=== PATIENT | female | born 1940 | race Caucasian/White ===

== ENCOUNTER → 2024-09-18 | Outpatient (CLI) | payer MEDICARE, SELFPAY ==
--- NOTE | 2024-09-18 10:30 | XR_ITS ---
Examination: Screening digital mammography, bilateral Computer aided detection 3-D breast Tomosynthesis, bilateral Date and time of exam: September 18, 2024 at 10:31 AM Compared to mammograms dating to June 21, 2020 Indication: Screening Technique: Nonmagnified MLO, CC views of the breasts to been obtained, reconstructed from 3-D Tomosynthesis images. R2 computer aided detection program utilized for evaluation of suspicious masses and/or abnormal calcifications. 3-D Tomosynthesis images obtained. Findings: The breasts are heterogeneously dense, which may obscure small masses Scar formation surgical clips upper outer left breast again noted 14 mm focal asymmetry upper outer right breast posterior depth Impression: BI-RADS Category 0: Incomplete: Need additional imaging evaluation 10 mm focal asymmetry upper outer right breast posterior depth, recommend follow-up spot tomographic views of this asymmetry as well as bilateral breast sonography to complete the workup
== END | disposition home or self-care (01) ==
PROVIDERS: Referring Provider Nurse Practitioner Family; Visit Provider Nurse Practitioner Family
DX: Z12.31 Encounter for screening mammogram for malignant neoplasm of breast (principal); R92.8 Other abnormal and inconclusive findings on diagnostic imaging of breast; N64.89 Other specified disorders of breast
CPT/HCPCS: 77063; 77067

== ENCOUNTER → 2024-11-15 | Outpatient (CLI) | payer MEDICARE, SELFPAY ==
--- NOTE | 2024-11-15 11:41 | XR_ITS ---
Examination: Diagnostic digital mammography, unilateral, right Computer aided detection 3-D breast Tomosynthesis, unilateral Date and time of exam: November 15, 2024 1147 hours INDICATIONS: Mammogram September 18, 2024 10 mm focal asymmetry upper outer right breast posterior depth Technique: Nonmagnified MLO, CC views of the right breast have been obtained, reconstructed from 3-D Tomosynthesis images. R2 computer aided detection program utilized for evaluation of suspicious masses and/or abnormal calcifications. 3-D Tomosynthesis images obtained. Findings: The breast is heterogeneously dense, which may obscure small masses No suspicious masses Benign calcifications Breast biopsy marker upper right breast Impression: BI-RADS category : Benign findings Recommend yearly right mammogram follow-up Please see the left breast sonogram report today indicating BI-RADS 4 suspicious nodule 1:00 position left breast requiring ultrasound biopsy
--- NOTE | 2024-11-15 12:30 | XR_ITS ---
Examination: Breast ultrasound complete, bilateral Date and time of exam: November 15, 2024 1220 hours INDICATIONS: Mammogram September 18, 2024 14 mm focal asymmetry upper outer right breast anterior depth Technique: Real-time grayscale ultrasonographic imaging bilateral breasts, including all 4 quadrants as well as nipple retroareolar and axillary regions. Findings: Sonographic images right breast 9:00 cyst 3 x 4 mm Retroareolar calcification 4 x 5 mm Sonographic images left breast 1:00 nodule with shadowing 13 x 10 x 13 mm indistinct margins IMPRESSION: BI-RADS Category 4: Suspicious for malignancy Suspicious nodule 1:00 position left breast, biopsy is needed to exclude breast carcinoma, this mass is amenable to ultrasound-guided breast biopsy for diagnosis
== END | disposition home or self-care (01) ==
LOC: CDIM 11:39
PROVIDERS: Referring Provider Nurse Practitioner Family; Visit Provider Nurse Practitioner Family
DX: R92.321 Mammographic fibroglandular density, right breast (principal); N63.21 Unspecified lump in the left breast, upper outer quadrant
CPT/HCPCS: 76641; 77061; 77065; G0279

== ENCOUNTER → 2025-01-29 | Outpatient (CLI) | payer MEDICARE, SELFPAY | END | disposition home or self-care (01) | PROVIDERS: PCP Nurse Practitioner Family; Referring Provider Nurse Practitioner Family; Visit Provider Nurse Practitioner Family | DX: E11.65 Type 2 diabetes mellitus with hyperglycemia (principal); E78.5 Hyperlipidemia, unspecified; R53.81 Other malaise; R53.83 Other fatigue; Z11.59 Encounter for screening for other viral diseases | CPT/HCPCS: 80053; 80061; 82043; 82306; 82570; 82607; 82746; 83036; 84439; 84443; 85025; 86803 ==

== ENCOUNTER → 2025-01-30 | Outpatient (CLI) | payer MEDICARE, SELFPAY ==
[2025-01-30 10:43] LABS: Basophils # (Auto) 0.1 Thou/mm3 (0.0-0.2); Basophils % (Auto) 1 % (0-2.5); Eosinophils # (Auto) 0.1 Thou/mm3 (0.0-0.5); Eosinophils % (Auto) 2 % (0-10); Hematocrit 39.3 % (36.0-46.0); Hemoglobin 13.5 g/dL (12.0-16.0); Immature Granulocytes % (Auto) 0 % (0-0); Immature Granulocytes Auto 0.02 Thou/mm3 (0.00-0.00); Lymphocytes # (Auto) 1.3 Thou/mm3 (1.0-4.8); Lymphocytes % (Auto) 18 % (10-50); Mean Corpuscular HGB Conc 34.4 g/dl (31.0-37.0); Mean Corpuscular Hemoglobin 29.9 pg (25.0-35.0); Mean Corpuscular Volume 87 fL (80-100); Monocytes # (Auto) 0.4 Thou/mm3 (0.0-0.8); Monocytes % (Auto) 6 % (0-12); Neutrophils # (Auto) 5.2 Thou/mm3 (1.8-7.7); Neutrophils % (Auto) 73 % (37-80); Nucleated Red Blood Cell % 0 /100 WBC (0); Platelet Count 193 Thou/mm3 (140-440); RDW Standard Deviation 44.2 fL (36.4-46.3); Red Blood Count 4.52 Miln/mm3 (4.00-5.20); White Blood Count 7.1 Thou/mm3 (3.6-11.0)
[2025-01-30 11:19] LABS: Glucose Estimated Average 151 mg/dL (80-131); Hemoglobin A1C 6.9 % Hgb (4.8-6.0)
[2025-01-30 11:23] LABS: Alanine Aminotransferase 11 U/L (10-49); Albumin, Serum 4.5 gm/dL (3.4-4.8); Alkaline Phosphatase 73 U/L (46-116); Anion Gap 14 (7-16); BUN/Creatinine Ratio 14 Ratio (12-20); Bilirubin,Total 2.2 mg/dL (0.3-1.2); Blood Urea Nitrogen 14 mg/dL (9-23); Calcium 9.7 mg/dL (8.3-10.6); Calcium (Corrected) 9.7 mg/dL (8.5-10.1); Carbon Dioxide 26.7 mMol/L (20.0-31.0); Chloride 104 mMol/L (98-107); Cholesterol 124 mg/dL (132-200); Free T4 (Free Thyroxine) 1.31 ng/dL (0.89-1.76); Globulin 2.2 gm/dL (2.3-3.5); Glucose 164 mg/dL (74-106); HDL Cholesterol 62 mg/dL (40-60); LDL Cholesterol,Calculated 36 mg/dL (0-130); Osmolality,Calculated 293 (275-295); Potassium 3.8 mMol/L (3.4-5.1); Sodium 145 mMol/L (136-145); Thyroid Stimulating Hormone 1.63 uIU/mL (0.55-4.78); Total Protein 6.7 gm/dL (5.7-8.2); Triglycerides 130 mg/dL (30-150); eGFR 55 See Note
[2025-01-30 11:43] LABS: Folate 12.86 ng/mL (>5.38); Hepatitis C Antibody Non Reactive (Non React); Vitamin B12 956 pg/mL (211-911)
[2025-01-30 11:45] LABS: Creatinine MALB Rnd Ur 166 mg/dL (30-125); Microalbumin Creat Ratio 4 mg/gCrea (<30); Microalbumin, Random Urine 6 mg/L (0-300)
== END | disposition home or self-care (01) ==
LOC: COPL 10:12
PROVIDERS: PCP Nurse Practitioner Family; Referring Provider Nurse Practitioner Family; Visit Provider Nurse Practitioner Family
DX: E11.65 Type 2 diabetes mellitus with hyperglycemia (principal); E78.5 Hyperlipidemia, unspecified; R53.81 Other malaise; R53.83 Other fatigue; Z11.59 Encounter for screening for other viral diseases
CPT/HCPCS: 36415; 80053; 80061; 82043; 82306; 82570; 82607; 82746; 83036; 84439; 84443; 85025; 86803

== ENCOUNTER → 2025-02-14 | Outpatient (CLI) | payer MEDICARE, SELFPAY ==
--- NOTE | 2025-02-14 09:30 | XR_ITS ---
Examinations: Ultrasound-guided percutaneous breast biopsy, left breast 1:00 nodule left Left breast sonography limited Left breast sonogram November 15, 2024 BI-RADS 4 suspicious nodule 1:00 position left breast. Exam date and time: February 14, 2025 1123 hours. Informed consent provided. Technique: A timeout was completed verifying correct patient, procedure, site, positioning, and special equipment if applicable Informed consent provided. The patient was placed in a supine position for the breast biopsy. Sonographic images of the breast were performed for localization of the suspicious nodule The patient's breast was prepped and draped in sterile fashion. Maximum sterile barrier technique, hand hygiene, ultrasound sterile technique 1% lidocaine was used to anesthetize the skin and breast adjacent to the suspicious nodule. Utilizing ultrasonographic guidance, 8 core biopsies were obtained of the suspicious nodule utilizing an 18-gauge BioPince needle. The specimens appears satisfactory. US guided breast biopsy marker placement. Estimated blood loss 3 cc. The patient tolerated the procedure well and there were no complications. Impression: Successful ultrasound-guided percutaneous breast biopsy, left breast 1:00 nodule. Ultrasound guided breast biopsy marker placement.
[2025-02-14 10:54] LABS: Basophils # (Auto) 0.1 Thou/mm3 (0.0-0.2); Basophils % (Auto) 1 % (0-2.5); Eosinophils # (Auto) 0.1 Thou/mm3 (0.0-0.5); Eosinophils % (Auto) 1 % (0-10); Hematocrit 41.4 % (36.0-46.0); Hemoglobin 13.6 g/dL (12.0-16.0); Immature Granulocytes % (Auto) 1 % (0-0); Immature Granulocytes Auto 0.06 Thou/mm3 (0.00-0.00); Lymphocytes # (Auto) 1.7 Thou/mm3 (1.0-4.8); Lymphocytes % (Auto) 22 % (10-50); Mean Corpuscular HGB Conc 32.9 g/dl (31.0-37.0); Mean Corpuscular Hemoglobin 29.6 pg (25.0-35.0); Mean Corpuscular Volume 90 fL (80-100); Monocytes # (Auto) 0.7 Thou/mm3 (0.0-0.8); Monocytes % (Auto) 9 % (0-12); Neutrophils # (Auto) 5.1 Thou/mm3 (1.8-7.7); Neutrophils % (Auto) 67 % (37-80); Nucleated Red Blood Cell % 0 /100 WBC (0); Platelet Count 229 Thou/mm3 (140-440); RDW Standard Deviation 43.9 fL (36.4-46.3); White Blood Count 7.6 Thou/mm3 (3.6-11.0)
[2025-02-14 11:06] LABS: INR 1.2 (0.9-1.3); Partial Thromboplastin Time 27.5 Seconds (22.0-36.0); Prothrombin Time 12.7 Seconds (9.0-12.2)
== END | disposition home or self-care (01) ==
PROVIDERS: Radiology Diagnostic Radiology; PCP Nurse Practitioner Family; Referring Provider Nurse Practitioner Family; Visit Provider Nurse Practitioner Family
DX: N60.32 Fibrosclerosis of left breast (principal); R92.1 Mammographic calcification found on diagnostic imaging of breast
CPT/HCPCS: 19083; 36415; 85025; 85610; 85730; A4648

== ENCOUNTER 2025-03-14 13:33 | Inpatient (IN) | payer MEDICARE, SELFPAY ==
[2025-03-14] VITALS (7 sets, daily range): BP systolic 123–169; BP diastolic 74–92; PULSE 92–109; RESP 14–18; TEMP 36.4–36.9; O2SAT 95–99; BMI 24.7; BMI 24.0; BMI 23.7
--- NOTE | 2025-03-14 13:44 | XR_ITS ---
Examination: AP chest single view Technique one AP portable upright chest single view Date and time: March 14, 2025 1456 hours INDICATIONS: Shortness of breath today. FINDINGS: Normal heart size. Lungs are clear. The osseous structures are intact, demineralized Left breast axillary surgical clips IMPRESSION: No pneumonia or pulmonary edema
--- NOTE | 2025-03-14 13:44 | XR_ITS ---
Examination: CT brain head without contrast. 2-D sagittal coronal reconstructions Date and time of exam:March 14, 2025 1512 hours INDICATIONS: Altered mental status today COMPARISON: November 04, 2020 CTDI: vol (mGy):48 DLP: (mGycm):947 Technique: Multiple CT axial sections of the brain have been obtained, 5 mm slice thickness. Contrast has not been administered. 2-D sagittal, coronal reconstructions have been obtained Low dose protocols were performed. One or more of the following dose reduction techniques were used; automated exposure control, adjustment of the mA and/or KV according to patient size, use of iterative reconstruction technique. Findings: No significant ventricular enlargement. Intra-axial or extra-axial hemorrhage density is not seen. No mass effect or midline shift Basal cisterns are not remarkable. Fourth ventricle is midline. Cranial vault intact. Impression: Negative for acute hemorrhage, mass effect or midline shift
--- NOTE | 2025-03-14 14:27 | PD.EDFALL ---
ED Fall Injury RME/HPI General Chief Complaint: Weakness Stated Complaint: WEAKNESS Time Seen by Provider: 03/14/25 13:44 Arrival date/time: 03/14/25 13:33 Limitations: no limitations RME / HPI RME / HPI Narrative: 84 year old female with history of diabetes, gout, left breast cancer s/p left breast lumpectopmy and radiation treatment presents to the ED BIBA from home for evaluation of weakness after fall. Patient reports she was getting out of bed when she fell. Reportedly was unable to get up off the floor due to weakness. States today her brother called her and made him aware of the fall and he called 911. Per medics, on scene there was feces on the floor next to the patient. Reported she was unable to stand to use the restroom. Prehospital BS 209, blood pressure 158/68, HR 109. Patient denied head injury or LOC. Denies fevers, chills, sweats, chest pain, cough, shortness of breath, abdominal pain, nausea, vomiting, or urinary symptoms. Related Data Home Medications ?Medication ?Instructions ?Recorded ?Confirmed gabapentin 300 mg capsule 300 mg PO TID ##270 12/25/15 11/04/20 dulaglutide 0.75 mg/0.5 mL 1 units IM QWEEK ##6 04/28/16 11/04/20 subcutaneous pen injector (Trulicity) acetaminophen 650 mg 650 mg PO Q12H PRN Pain 09/26/19 11/04/20 tablet,extended release (Tylenol Arthritis Pain) allopurinol 100 mg tablet 100 mg PO QDAY 09/26/19 11/04/20 omeprazole magnesium 10 mg oral 20 mg PO QDAY 09/26/19 11/04/20 suspension,delayed release (Prilosec) simvastatin 20 mg tablet 20 mg PO QPM 09/26/19 11/04/20 Previous Rx's ?Medication ?Instructions ?Recorded tramadol 50 mg tablet 50 mg PO Q6H PRN pelvic fracture 11/05/20 #10 tabs Allergies Allergy/AdvReac Type Severity Reaction Status Date / Time codeine Allergy Mild SHAKES Verified 11/04/20 18:09 meperidine AdvReac Severe SEVERE Verified 11/04/20 18:09 VOMITING Review of Systems Review of Systems Systems Reviewed: All systems reviewed, normal except as documented Past Medical History Past Medical History CARDIAC: Positive Cardiac Disorders and Hypercholesterolemia REPRODUCTIVE: Positive Breast Cancer MUSCULOSKELETAL: Positive Musculoskeletal Disorders and Gout ENDOCRINE: Positive Endocrine Disorders and Diabetes Mellitus Type 2 OTHER HISTORY: Positive Blood Transfusions, Radiation Therapy, Cancer and Breast Cancer Social History SMOKING STATUS: Never smoker ED Exam General Limitations: Present no limitations General appearance: Present alert and in no apparent distress Head Head exam: Present atraumatic Eye Eye exam: Present normal appearance, PERRL and EOMI ENT ENT exam: Present normal exam, normal oropharynx and mucous membranes moist Neck Neck exam: Present normal inspection, full ROM and trachea midline Chest Chest inspection: Present normal inspection and symmetric chest wall rise Respiratory Respiratory exam: Present normal lung sounds bilaterally Cardiovascular Cardiovascular exam: Present regular rate, normal rhythm and normal heart sounds Abdominal Exam Abdominal exam: Present soft and normal bowel sounds Extremities Exam Extremities exam: Present normal inspection and full ROM Back Exam Back exam: Present normal inspection and full ROM Neurological Exam Neurological exam: Present alert, oriented X3 and CN II-XII intact Psychiatric Psychiatric exam: Present normal affect and normal mood Skin Skin exam: Present warm, dry, intact and normal color Course Quality Measures none Orders Category Date Time Status EKG (ED ONLY) *Do not use* NOW Care 03/14/25 17:33 Active In and Out Catheter X1 Care 03/14/25 14:[address] head/brain wo con Stat Exams 03/14/25 13:44 Completed CXR [XR chest 1V] Stat Exams 03/14/25 13:44 Completed EKG (ED Only) Stat Exams 03/14/25 17:33 Ordered US abdomen limited Stat Exams 03/14/25 17:28 Ordered Bilirubin,Direct Stat Lab 03/14/25 17:30 Ordered CBC Stat Lab 03/14/25 15:07 Completed CK [Creatine Kinase] Stat Lab 03/14/25 15:07 Completed CMP [Comprehensive Metabolic Panel] Stat Lab 03/14/25 15:07 Completed INR [Prothrombin Time with INR] Stat Lab 03/14/25 15:07 Completed Troponin I Stat Lab 03/14/25 15:07 Completed UA, C/S IF [Urinalysis, C/S if Indicated] Stat Lab 03/14/25 14:54 Completed Ringers Lactated 1000 ml [Lactated Ringers] 1,000 ml Med 03/14/25 17:26 Active IV 999 mls/hr Vital Signs Vital signs: Vital Signs Temperature 97.8 F 03/14/25 14:08 Pulse Rate 102 H 03/14/25 14:08 Respiratory Rate 16 03/14/25 14:08 Blood Pressure 123/80 03/14/25 14:08 Pulse Oximetry (%) 98 03/14/25 14:08 Oxygen Delivery Method Room Air 03/14/25 14:08 Pulse ox is 98% on room air which is adequate. Fall MDM Narrative MDM Narrative:: IYoselyn, phil scribing for and in the presence of Dr. Shell. Patient is an 84-year-old female with an emergency department with concerns for ground-level fall and difficulties getting up. Vital signs and exam as listed. Ordered labs EKG CT brain after medications for symptom relief. Labs with evidence of leukocytosis 20, with left shift. Chest x-ray unremarkable, urinalysis without evidence of infection. Patient without any abdominal pain however has a hyperbilirubinemia that is been progressively uptrending. Previously was 2 currently T. bili is 4. Ordered direct bilirubin and right upper quadrant ultrasound. Patient also with evidence of rhabdomyolysis, CK16 100, ordered fluids. CT brain and chest x-ray unremarkable. At this time my shift with no transition care over to the oncoming provider Dr. Tovar, patient is pending results of her workup and safe dispo. Patient data External records reviewed:: [facility] previous records (I reviewed ED visit on 11/05/2020 ) and EMS form Clinical information provided by:: patient and EMS Social determinants that could affect healthcare access:: none Patient has the following chronic illnesses:: diabetes, gout, left breast cancer s/p left breast lumpectopmy and radiation treatment How is presenting disease/condition affected by chronic disease/condition?: exacerbated by Evaluation data The following diagnostics were reviewed and interpreted by me:: lab results and radiology exam(s) Lab and/or radiology exams considered but not ordered:: None Interpretation Summary: Ordering Physician: Renetta Shell MD Date of Service: 03/14/25 Procedure(s): XR chest 1V Accession Number(s): [id number] cc: Hasmukh Clarke MD; NO PRIMARY/FAMILY,PHYSICIAN; Renetta Shell MD~ Examination: AP chest single view Technique one AP portable upright chest single view Date and time: March 14, 2025 1456 hours INDICATIONS: Shortness of breath today. FINDINGS: Normal heart size. Lungs are clear. The osseous structures are intact, demineralized Left breast axillary surgical clips IMPRESSION: No pneumonia or pulmonary edema Dictated By: Hasmukh Clarke MD Signed By: <Electronically signed by Hasmukh Clarke MD in OV> 03/14/25 1507 Ordering Physician: Renetta Shell MD Date of Service: 03/14/25 Procedure(s): CT head/brain wo con Accession Number(s): [id number] cc: Hasmukh Clarke MD; NO PRIMARY/FAMILY,PHYSICIAN; Renetta Shell MD~ Examination: CT brain head without contrast. 2-D sagittal coronal reconstructions Date and time of exam:March 14, 2025 1512 hours INDICATIONS: Altered mental status today COMPARISON: November 04, 2020 CTDI: vol (mGy):48 DLP: (mGycm):947 Technique: Multiple CT axial sections of the brain have been obtained, 5 mm slice thickness. Contrast has not been administered. 2-D sagittal, coronal reconstructions have been obtained Low dose protocols were performed. One or more of the following dose reduction techniques were used; automated exposure control, adjustment of the mA and/or KV according to patient size, use of iterative reconstruction technique. Findings: No significant ventricular enlargement. Intra-axial or extra-axial hemorrhage density is not seen. No mass effect or midline shift Basal cisterns are not remarkable. Fourth ventricle is midline. Cranial vault intact. Impression: Negative for acute hemorrhage, mass effect or midline shift Dictated By: Hasmukh Clarke MD Signed By: <Electronically signed by Hasmukh Clarke MD in OV> 03/14/25 1524 Medications / Prescriptions Medications or Prescriptions considered but not ordered:: None Medication administrations:: Medication Administration History Lactated Ringer's (Lactated Ringers) 1,000 mls @ 999 mls/hr IV .Q1H1M ONE Stop: 03/14/25 18:26 None Consultations Consultation(s) initiated? (list below): No Diagnosis Fall Differential Diagnosis: syncope Most likely diagnosis given after review of the tests above:: rhabdomyolysis, hyperbilirubinemia Admission Indicated Admission indicated?: not indicated Explain why admission is indicated or not indicated:: patient signed out pending final disposition Admission Request Was there a request for admission?: No Disposition Plan Disposition Plan: other (specify) (Signed out) Discharge Plan Prescriptions/Referrals Prescriptions/Med Rec: No Action gabapentin 300 MG capsule 300 mg PO TID Qty: 270 Trulicity 0.75 MG/0.5 ML pen injector 1 units IM QWEEK Qty: 6 allopurinol 100 mg Tablet 100 mg PO QDAY simvastatin 20 mg Tablet 20 mg PO QPM Rx Instructions: PT TAKES EVERY OTHER 4 DAYS Prilosec 10 mg Susp,Delayed Release For Recon 20 mg PO QDAY acetaminophen [Tylenol Arthritis Pain] 650 mg Tablet Extended Release 650 mg PO Q12H PRN (Reason: Pain) tramadol 50 mg tablet 50 mg PO Q6H PRN (Reason: pelvic fracture) Qty: 10 0RF Referrals: No Primary/Family,Physician [Primary Care Provider] - In 1 week Problem List Clinical Impression: Syncope Patient/Caregiver Discharge Instructions Print Language: Khmer
--- NOTE | 2025-03-14 14:40 | PC.NURSE ---
PT CHANGED INTO GOWN; PT HAD FECES MATERIAL ALL OVER PERINEUM AND BILATERAL THIGHS. PT GIVEN PERINEAL CARE WITH WARM BATH CLOTHS. PT PLACED IN NEW GOWN AND NEW CLEAN BRIEFS. LINEN CHANGED PERFORMED WELL. CARPET STANLEY NOTED ALL ALONG PT'S KNEES AND FEET BILATERALLY. REDNESS ALSO NOTED ALONG PT'S HIPS, ESPECIALLY ON PT'S R HIP; WHEN PT'S R HIP PALPATED, PT DENIED ANY PAIN.
[2025-03-14 15:07] LABS: Collection Type, Urine Catheter; RBC,Urine 0 /hpf (0-3); Squamous Epithelial Cell,Urine 0 /hpf (0-5); WBC,Urine 0 /hpf (0-5)
[2025-03-14 15:15] LABS: Basophils # (Auto) 0.0 Thou/mm3 (0.0-0.2); Basophils % (Auto) 0 % (0-2.5); Eosinophils # (Auto) 0.0 Thou/mm3 (0.0-0.5); Eosinophils % (Auto) 0 % (0-10); Hematocrit 42.3 % (36.0-46.0); Hemoglobin 14.8 g/dL (12.0-16.0); Immature Granulocytes Auto 0.07 Thou/mm3 (0.00-0.00); Lymphocytes # (Auto) 0.9 Thou/mm3 (1.0-4.8); Lymphocytes % (Auto) 4 % (10-50); Mean Corpuscular HGB Conc 35.0 g/dl (31.0-37.0); Mean Corpuscular Hemoglobin 30.0 pg (25.0-35.0); Mean Corpuscular Volume 86 fL (80-100); Monocytes # (Auto) 1.3 Thou/mm3 (0.0-0.8); Monocytes % (Auto) 6 % (0-12); Neutrophils # (Auto) 18.0 Thou/mm3 (1.8-7.7); Neutrophils % (Auto) 89 % (37-80); Nucleated Red Blood Cell # 0.00 Thou/mm3 (0.00-0.00); Nucleated Red Blood Cell % 0 /100 WBC (0); Platelet Count 190 Thou/mm3 (140-440); RDW Standard Deviation 42.1 fL (36.4-46.3); Red Blood Count 4.93 Miln/mm3 (4.00-5.20); White Blood Count 20.2 Thou/mm3 (3.6-11.0)
[2025-03-14 15:31] LABS: INR 1.2 (0.9-1.3); Prothrombin Time 13.3 Seconds (9.0-12.2)
[2025-03-14 15:50] LABS: Alanine Aminotransferase 19 U/L (10-49); Albumin, Serum 4.3 gm/dL (3.4-4.8); Albumin/Globulin Ratio 1.5 (1.2-2.2); Alkaline Phosphatase 64 U/L (46-116); Anion Gap 15 (7-16); Aspartate Amino Transferase 61 U/L (0-34); BUN/Creatinine Ratio 20 Ratio (12-20); Bilirubin,Total 4.5 mg/dL (0.3-1.2); Blood Urea Nitrogen 22 mg/dL (9-23); Calcium 9.5 mg/dL (8.3-10.6); Calcium (Corrected) 9.5 mg/dL (8.5-10.1); Carbon Dioxide 26.4 mMol/L (20.0-31.0); Chloride 100 mMol/L (98-107); Creatine Kinase 1609 U/L (34-171); Creatinine (Component) 1.1 mg/dL (0.6-1.3); Estimated Creatinine Clearance 38.4 mL/min (>60); Globulin 2.8 gm/dL (2.3-3.5); Glucose 208 mg/dL (74-106); Osmolality,Calculated 290 (275-295); Potassium 3.9 mMol/L (3.4-5.1); Sodium 141 mMol/L (136-145); Total Protein 7.1 gm/dL (5.7-8.2); Troponin I < 0.020 ng/mL (0.0-0.045); eGFR 49 See Note
[2025-03-14 16:10] LABS: Bilirubin,Urine 1+ (Negative); Blood,Urine Trace-Intact (Negative); Clarity,Urine Clear (Clear/Hazy); Color,Urine Yellow (Lt Yel-Yel); Culture Indicated,Urine Not Indicated; Glucose, Urine Negative (Negative); Ketones,Urine 1+ (Negative); Leukocyte Esterase,Urine Trace (Negative); Nitrite,Urine Negative (Negative); PH,Urine 6.0 (5.0-7.0); Protein,Urine 1+ (Neg - Trace); Specific Gravity,Urine 1.025 (1.001-1.035); Urobilinogen,Urine 1.0 mg/dL (0.0-1.0)
--- NOTE | 2025-03-14 17:28 | XR_ITS ---
Examination: Abdomen sonogram, Limited Date and time of exam: March 14, 2025 at 1734 hours INDICATIONS: Hyperbilirubinemia today, diagnosis left breast cancer post radiation 5-10 years ago Technique: Real-time luciano scale transabdominal sonographic images of the upper abdomen obtained. Findings: Multiple gallstones Gallbladder wall 0.3 cm no edema Common bile duct 0.4 cm Pancreatic head 1.9 cm Liver 14.9 cm no liver lesions Normal hepatopedal portal venous flow Patent IVC IMPRESSION: Cholelithiasis, negative for cholecystitis No common bile duct stones Liver normal size, no liver lesions
--- NOTE | 2025-03-14 17:33 | EKG_ITS ---
[facility] Test Date: 2025-03-14 Pat Name: GUERA HERNANDEZ Department: Room: - Gender: Female Director Of Strategic Initiatives: : 1940 Requested By: Renetta Diallo Order Number: [id number] Reading MD: Renetta Diallo Measurements Intervals [place] Rate: 93 P: 67 KS: 167 QRS: -25 QRSD: 102 T: 60 QT: 353 QTc: 441 Interpretive Statements SINUS RHYTHM BORDERLINE LEFT AXIS DEVIATION [QRS AXIS < -20] MINIMAL VOLTAGE CRITERIA FOR LVH, CONSIDER NORMAL VARIANT [MEETS CRITERIA IN ONE OF: R(aVL), S(V1), R(V5), R(V5/V6)+S(V1)] Compared to ECG 11/20/2019 12:26:07 Myocardial infarct finding no longer present /store/S0/[id number].pdf
[2025-03-14] MEDS: RINGERS LACTATED 1000 ML 1,000 ML 999 ML IV (17:37)
[2025-03-14 18:11] LABS: Bilirubin,Direct 1.1 mg/dL (0.0-0.3)
--- NOTE | 2025-03-14 18:19 | PD.EDADDENDU ---
Emergency Room Addendum Addendum Narrative: 1800: Care assumed from Dr. Shell, the previous shift emergency physician. Past medical, surgical, social and family history reviewed. Vitals and home medications reviewed. Results and treatment plan discussed. I will assume the care of the patient at this time and will follow the patient, pending abdominal ultrasound. Please refer to the emergency department record for history and examination from initial visit. Lactic Acid 2.9, Procalcitonin normal. Blood cultures were sent. 2100: Discussed case with the resident physician, attending Dr. Benjamin from Hospitalist service regarding admission. Discussed patients ED course, exam findings, labs, and radiology results. The Hospitalist agrees to accept the patient for admission. RADIOLOGY RESULTS: Portal Imaging Report Signed Patient: GUERA HERNANDEZ. Record#: [id number] Birthdate: 1940 Age/Sex: 84 / F Location: [facility] Attending Dr: Ordering Physician: Renetta Shell MD Date of Service: 03/14/25 Procedure(s): US abdomen limited Accession Number(s): [id number] cc: Hasmukh Clarke MD; NO PRIMARY/FAMILY,PHYSICIAN; Renetta Shell MD~ Examination: Abdomen sonogram, Limited Date and time of exam: March 14, 2025 at 1734 hours INDICATIONS: Hyperbilirubinemia today, diagnosis left breast cancer post radiation 5-10 years ago Technique: Real-time luciano scale transabdominal sonographic images of the upper abdomen obtained. Findings: Multiple gallstones Gallbladder wall 0.3 cm no edema Common bile duct 0.4 cm Pancreatic head 1.9 cm Liver 14.9 cm no liver lesions Normal hepatopedal portal venous flow Patent IVC IMPRESSION: Cholelithiasis, negative for cholecystitis No common bile duct stones Liver normal size, no liver lesions Dictated By: Hasmukh Clarke MD Signed By: <Electronically signed by Hasmukh Clarke MD in OV> 03/14/25 7195
[2025-03-14 20:32] LABS: Lactate (Lactic Acid) 2.9 mMol/L (0.4-2.0)
[2025-03-14 21:03] LABS: Procalcitonin 0.15 ng/ml (0.0-0.49)
[2025-03-14] MEDS: SODIUM CHLORIDE 0.9% 1000 ML 1,000 ML 999 ML IV (21:26)
--- NOTE | 2025-03-14 22:03 | XR_ITS ---
Examination: AP shoulder single view TECHNIQUE: AP portable internal rotation shoulder single view Date and time: March 14, 2025 1018 hours INDICATIONS: Ground-level fall today with images shoulder, shoulder pain FINDINGS: No shoulder fracture or dislocation. No she joint separation IMPRESSION: No shoulder fracture or dislocation
--- NOTE | 2025-03-14 22:03 | XR_ITS ---
Examination: Knee, left , 3 views Technique: Knee AP, lateral, oblique 3 views Date and time of exam: March 14, 2025 1005 hours INDICATION: Ground-level fall today with injury to the knee, knee pain. FINDINGS: Left knee arthroplasty with satisfactory alignment No loosening of the prosthetic components. No fracture IMPRESSION: Total left knee arthroplasty with satisfactory alignment
--- NOTE | 2025-03-14 22:11 | XR_ITS ---
Examination: TRESA, hepatobiliary radioisotope scan Date and time of exam: March 15, 2025 1017 hours INDICATIONS: Breast carcinoma diagnosis with hyperbilirubinemia and elevated liver function tests on laboratory examination this week, cholelithiasis on ultrasound examination yesterday Technique: 6.0 mCi of 99M Hepatolite administered. Serial imaging then obtained from immediate through 60 minutes. Findings: Radioisotope activity within the liver is reasonably homogenous. Gallbladder, common bile duct small bowel activity noted Impression: Gallbladder activity is noted, negative for cystic duct obstruction
--- NOTE | 2025-03-14 22:20 | ECHO_ITS ---
Transthoracic Echo Report Ht (in): 69 Wt (lb): 162 Exam Location: Echo Lab Status: Emergency Promotions Assistant: Ce Ross Indications: Procedure Performed: BP: 128 / 88 HR: 96 Technical Quality: Technically difficult study MEASUREMENTS (Male / Female) Normal Values 2D ECHO LV Diastolic Diameter PLAX 3.2 cm 4.2 - 5.9 / 3.9 - 5.3 cm LV Systolic Diameter PLAX 2.4 cm IVS Diastolic Thickness 1.3 cm 0.6 - 1.0 / 0.6 - 0.9 cm LVPW Diastolic Thickness 1.2 cm 0.6 - 1.0 / 0.6 - 0.9 cm LV Relative Wall Thickness 0.8 LVOT Diameter 1.6 cm Aortic Root Diameter 2.8 cm LA Systolic Diameter LX 3.2 cm 3.0 - 4.0 / 2.7 - 3.8 cm LV Ejection Fraction MOD BP 50.4 % >= 55 % LV Cardiac Index MOD BP 1746.2 cm?/min?m? LV Ejection Fraction MOD 4C 58.0 % LV Cardiac Index MOD 4C 2191.6 cm?/min?m? LV Ejection Fraction 4C AL 60.1 % LV Cardiac Index 4C AL 2402.2 cm?/min?m? LV Ejection Fraction MOD 2C 44.6 % LV Cardiac Index MOD 2C 1351.4 cm?/min?m? LV Ejection Fraction 2C AL 48.6 % LV Cardiac Index 2C AL 1575.6 cm?/min?m? LA Volume Index 12.8 cm?/m? 16 - 28 cm?/m? M-MODE Aortic Root Diameter MM 2.4 cm LA Systolic Diameter MM 3.4 cm LA Ao Ratio MM 1.4 AV Cusp Separation MM 1.8 cm DOPPLER AV Peak Velocity 277.5 cm/s AV Peak Gradient 30.8 mmHg AV Mean Gradient 19.0 mmHg AV Velocity Time Integral 63.1 cm LVOT Peak Velocity 84.0 cm/s LVOT Peak Gradient 2.8 mmHg LVOT Velocity Time Integral 20.5 cm LVOT Cardiac Index 2086.2 cm?/min?m? AV Area Cont Eq vti 0.7 cm? AV Area Cont Eq pk 0.6 cm? MV Area PHT 4.1 cm? Mitral E Point Velocity 67.9 cm/s Mitral A Point Velocity 110.0 cm/s Mitral E to A Ratio 0.6 LV E' Lateral Velocity 8.1 cm/s Mitral E to LV E' Lateral Ratio 8.4 LV E' Septal Velocity 7.3 cm/s Mitral E to LV E' Septal Ratio 9.3 TR Peak Velocity 220.0 cm/s TR Peak Gradient 19.4 mmHg FINDINGS Left Ventricle Normal left ventricular size and systolic function with no obvious regional wall motion abnormalities. Mild LVH. The ejection fraction is visually estimated at 55-60%. There is grade I diastolic dysfunction of the left ventricle (impaired relaxation pattern). Right Ventricle The right ventricle is normal in size and systolic function. Left Atrium The left atrium is normal by two-dimensional, color flow and Doppler imaging with no structural abnormalities, no thrombus formation present. Right Atrium The right atrium is normal by two-dimensional imaging, color flow and Doppler imaging with no structural abnormalities, no thrombus formation present. Atrial Septum The interatrial septum appears normal with no evidence of a shunt. Aorta The aorta is normal by two-dimensional, color flow and Doppler interrogation. Mitral Valve The mitral valve is normal by two-dimensional, color flow and Doppler interrogation. There is no significant mitral valve regurgitation, stenosis or prolapse. Aortic Valve Mild aortic valve stenosis. Tricuspid Valve The tricuspid valve is normal by two-dimensional, color flow and Doppler interrogation. There is mild tricuspid valve regurgitation. Pulmonic Valve The pulmonic valve is not well visualized. There is no significant pulmonic valve regurgitation. Vessels The pulmonary artery appears normal. The inferior vena cava pulmonary and hepatic veins appear normal. Pericardium The pericardium is normal by two-dimensional imaging. There is no significant pericardial effusion. CONCLUSIONS Indication: Normal LV size. Mild LVH. Estimated EF at 55-60%. The RV is normal in size and systolic function. Mild calcific aortic stenosis with PEAK grdaient 33 mm HG VMAX 2,9 m/sec Mild tricuspid regurgitation Lily Lynn (Electronically Signed) Final Date: 15 March 2025 23:57
[2025-03-14] MEDS: RINGERS LACTATED 1000 ML 1,000 ML 150 ML IV (22:33)
[2025-03-14 23:05] LABS: B-Type Natriuretic Peptide 27 pg/mL (0-100)
--- NOTE | 2025-03-14 23:24 | PD.RESHP ---
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 She reports that she rolled off her bed yesterday where she proceeded to have the worst day of my life when she fell onto the floor and was unable to get back up. Apparently, after she fell, she spent the entire day on the floor and was neither able to reach her refrigerator to obtain sustenance nor transport herself to the toilet to relieve herself. It was not until she called her brother who told her to call 911 that she decided to call for help and was brought by ambulance to the hospital this morning. This was her second episode of falling off her bed. She also complains that she began having dizzy spells a few days ago as well as symptoms of acid indigestion (for which she ate a whole bottle of Tums). Additionally, she complains of abdominal pain with associated diarrhea since Wednesday. Before Wednesday, patient endorses being able to self-ambulate with a walker or cane but that now she was unable to do so. She denies any recent travel history or sick contacts. In the ED, vitals showed: BP 123/80 HR 102 RR 16 temp 97.8 SpO2 98% on room air ED Course: CBC showed elevated WBC 20.2 with neutrophilic predominance but was otherwise unremarkable. Coagulation panel showed slightly elevated PT 13.3. CMP showed reduced EGFR 49, elevated blood glucose 208, elevated lactic acid 2.9 (later up trended to 3.6), elevated total bilirubin 4.5 (with elevated direct bilirubin 1.1), elevated AST 61, normal ALT 19, significantly elevated total creatine kinase 1609. UA showed 1+ protein, 1+ ketones, and 1+ bilirubin. Imaging: CXR was negative for pneumonia and pulmonary embolism. Head CT was negative for acute hemorrhage, mass effect, or midline shift. Shoulder x-ray and knee x-ray were unremarkable. Abdominal ultrasound was significant for cholelithiasis but negative for cholecystitis, common bile duct stones, hepatomegaly, and liver lesions. EKG was unremarkable. In the ED, patient was given 1 L LR bolus x 1, 1 L NS bolus x 1, and started on 1 L LR maintenance fluid at 150 mL/hr. Patient was admitted for the work-up and management of ground-level fall with rhabdomyolysis, presyncope work-up, and possible symptomatic cholelithiasis. General surgery was consulted and is closely following the case. Review of Systems Review of Systems Narrative Review of Systems: General: Denies fevers or chills HEENT: Denies congestion or sore throat Heart: Denies chest pain or palpitations Lungs: Denies shortness of breath or cough Abdomen: Endorses heartburn. Endorses right upper quadrant abdominal pain. Endorses diarrhea. Denies nausea, vomiting, constipation, or blood in stool Genitourinary: Denies frequency, urgency, dysuria, or hematuria Neurology: Endorses episodes of lightheadedness. Endorses upper extremity and lower extremity weakness. Denies any changes in vision or difficulty speaking Review of systems otherwise negative except what is mentioned above. Past Medical History Past Medical History CARDIAC: Positive Cardiac Disorders and Hypercholesterolemia; Negative Congestive Heart Failure RESPIRATORY: Negative Chronic Obstructive Pulmonary Disease (COPD) GENITOURINARY: Negative Renal Disease REPRODUCTIVE: Positive Breast Cancer MUSCULOSKELETAL: Positive Musculoskeletal Disorders and Gout ENDOCRINE: Positive Endocrine Disorders and Diabetes Mellitus Type 2; Negative Diabetes Mellitus Type 1 OTHER HISTORY: Positive Blood Transfusions, Radiation Therapy, Cancer and Breast Cancer Social History SMOKING STATUS: Never smoker Past Medical History Comments PMH COMMENT: PMH: T2DM, 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 Skin: Bilateral bruising and/or skin abrasions of right lateral knee and left medial knee. Warm, dry, intact, no obvious rash. Head: Normocephalic, atraumatic. Eye: Normal conjunctiva, PERRL. Throat: Oral mucosa moist. Cardiovascular: Tachycardic rate and normal rhythm, no murmur, normal peripheral perfusion, no edema. Respiratory: Lungs are clear to auscultation, respirations non labored, no crackles, no wheezing. Gastrointestinal: Tenderness to palpation of RUQ abdomen. (+) Hannah's sign. Soft, non-distended. Psychiatric: Cooperative, appropriate affect. Neuro: Mental status: Alert, oriented, appropriately responding to commands. Speech/Language: Speech fluent, no word finding difficulty or paraphasic errors observed. Language-comprehension, repetition and naming intact. No dysarthria noted. Memory: Grossly recent and remote intact. Cranial Nerves: II: No visual deficits and visual russell full to confrontation. Pupils 3-5 mm size BL round, reactive to light. III, IV, : EOMI, no nystagmus, no ptosis, no APD, smooth pursuit without saccadic intrusion, conjugate horizontal gaze intact. V: Gross sensation intact in V1, V2 and V3 distribution to crude touch. Jaw strength normal. VII: No facial asymmetry, able to smile symmetrically and BL good eye closure. VIII: Hearing intact in both ears per finger rubbing. IX, X: Symmetrical palate elevation, uvula in midline. XI: Symmetrical head rotation and shoulder shrug. IX, XII: Midline tongue protrusion. No fasciculations or atrophy noted. Sensory examination Bilateral crude touch sensation reduced in lower extremities. Motor examination 4/5 strength in bilateral upper extremity 2/5 strength in bilateral lower extremity Coordination Deferred. Gait Unable to test due to patient being bedbound at the time. Results: Labs 03/14/25 15:07 03/14/25 15:07 Labs: Short CBC 03/14/25 Range/Units 15:07 WBC 20.2 H (3.6-11.0) Thou/mm3 Hgb 14.8 (12.0-16.0) g/dL Hct 42.3 (36.0-46.0) % Plt Count 190 D (140-440) Thou/mm3 BMP 03/14/25 15:07 Sodium 141 Potassium 3.9 Chloride 100 Carbon Dioxide 26.4 BUN 22 Creatinine 1.1 Glucose 208 H Calcium 9.5 Cardiac Enzymes 03/14/25 Range/Units 15:07 Total Creatine Kinase 1609 H (34-171) U/L Troponin I < 0.020 (0.0-0.045) ng/mL Liver Function 03/14/25 03/14/25 Range/Units 15:07 17:35 Total Bilirubin 4.5 H (0.3-1.2) mg/dL Direct Bilirubin 1.1 H (0.0-0.3) mg/dL AST 61 H (0-34) U/L ALT 19 (10-49) U/L Alkaline Phosphatase 64 (46-116) U/L Albumin 4.3 (3.4-4.8) gm/dL Urine 03/14/25 Range/Units 14:54 Urine Color Yellow (Lt Yel-Yel) Urine Clarity Clear (Clear/Hazy) Urine pH 6.0 (5.0-7.0) Ur Specific [place] 1.025 (1.001-1.035) Urine Protein 1+ A (Neg - Trace) Urine Glucose (UA) Negative (Negative) Quality Measures Quality Measures none Advance care planning discussed with:: patient Medications Home Medications and Allergies Home Medications ?Medication ?Instructions ?Recorded ?Confirmed ?Type gabapentin 300 mg capsule 300 mg PO BID ##270 12/25/15 03/15/25 History dulaglutide 0.75 mg/0.5 mL 1 units IM QWEEK ##6 04/28/16 03/15/25 History subcutaneous pen injector (Trulicity) acetaminophen 650 mg 650 mg PO Q12H PRN Pain 09/26/19 03/15/25 History tablet,extended release (Tylenol Arthritis Pain) allopurinol 100 mg tablet 100 mg PO QDAY 09/26/19 03/15/25 History omeprazole magnesium 10 mg oral 20 mg PO QDAY 09/26/19 11/04/20 History suspension,delayed release (Prilosec) simvastatin 20 mg tablet 20 mg PO QDAY 09/26/19 03/15/25 History Allergies Allergy/AdvReac Type Severity Reaction Status Date / Time codeine Allergy Mild SHAKES Verified 11/04/20 18:09 meperidine AdvReac Severe SEVERE Verified 11/04/20 18:09 VOMITING Visit Medications Acetaminophen (Acetaminophen 325 Mg Tablet) 650 mg PO Q6H PRN PRN Reason: PAIN SCALE 1-3 (mild Stop: 04/13/25 21:54 Hydrocodone Bitart/Acetaminophen (Hydrocodone/Apap 5/325 Tablet) 1 tab PO Q6HR PRN PRN Reason: Pain 4-10 Stop: 03/19/25 22:03 Dextrose (Dextrose 50%-Water Inj 50 Ml Syringe) 25 ml IV Q15MIN PRN PRN Reason: BG 50-70 responsive npo pt Stop: 04/13/25 21:54 Dextrose (Dextrose 50%-Water Inj 50 Ml Syringe) 50 ml IV Q15MIN PRN PRN Reason: BG <50 OR BG <70 & pt unresponsive Stop: 04/13/25 21:54 Glucagon (Glucagon Inj 1 Mg Vial) 1 mg IM Q15MIN PRN PRN Reason: BG <70, and no IV access Heparin Sodium (Porcine) (Heparin Sod Inj 5000 Unit/Ml Vial) 5,000 unit SC Q12HR [facility] Stop: 03/29/25 08:59 Lactated Ringer's (Lactated Ringers) 1,000 mls @ 150 mls/hr IV .Q6H40M [facility] Stop: 03/15/25 04:42 Last Admin: 03/14/25 22:33 Dose: 150 mls/hr Insulin Human Lispro (Insulin Lispro (Admelog) 1 Unit/0.01 Ml Unit) 0 unit SC [facility]; Protocol Stop: 04/14/25 07:29 Ondansetron HCl (Ondansetron Inj 2 Mg/Ml Inj 2 Ml) 4 mg IVP Q6H PRN; Protocol PRN Reason: NAUSEA OR VOMITING Stop: 04/13/25 21:54 Sennosides (Senna Tablet) 1 tab PO QDAY PRN; Protocol PRN Reason: constipation Stop: 04/13/25 21:54 Discontinued Medications Lactated Ringer's (Lactated Ringers) 1,000 mls @ 999 mls/hr IV .Q1H1M ONE Stop: 03/14/25 18:26 Last Infusion: 03/14/25 19:03 Dose: Infused Sodium Chloride (Ns) 1,000 mls @ 999 mls/hr IV .Q1H1M ONE Stop: 03/14/25 22:15 Last Infusion: 03/14/25 22:27 Dose: Infused Lactated Ringer's (Lactated Ringers) 1,000 mls @ 75 mls/hr IV .[id number] [facility] Stop: 03/15/25 11:19 Last Admin: 03/14/25 22:05 Dose: Not Given Assessment & Plan Assessment Bria Kendrick is an 84-year-old F with a PMH of 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 Patient was admitted for the work-up and management of ground-level fall with rhabdomyolysis, presyncope work-up, and possible symptomatic cholelithiasis. #Ground-level fall #Rhabdomyolysis Initial Presentation: -Fell out of bed on 03/14/2025 and spent entire day on concrete floor of house (2nd occurrence) -BIBA 03/14/2025 and newly immobile upon admission (capable of self-ambulation with walker/cane before episode) -Significant history includes: dizziness starting a few days ago, left knee replacement Work-up History: -Initial labs (03/14/2025) significant for elevated total creatine kinase 1609 suggesting rhabdomyolysis -However, normal BUN 22 and creatinine 1.1 indicate no apparent KARENA during this time -03/14/[address] negative for hemorrhage -03/14/2025 CXR, shoulder X-ray, and knee X-ray all negative for fractures Diagnostic Inquiry: -No current recommendation Treatment Plan: -1 L LR maintenance fluid @ 150 mls/hr (1 bag) to flush out toxic muscle breakdown products -Pain management (PO Tylenol 650 mg q6HR prn for pain 1-3, PO Ages [place] 5/325 q6HR prn for pain 4-10) -Strict I's & O's to monitor urine output and hydration status -PT consult #Presyncope Initial Presentation: -Endorses dizzy spells for the past few days and has had more than 1 fall recently Work-up History: -Initial labs (03/14/2025) significant for elevated blood glucose 208, indicating T2DM and possible hypoglycemic etiologies for recent dizziness -03/14/[address] negative for hemorrhage -Possible differentials at this time: vasovagal syncope, hypoglycemia, orthostatic hypotension, aortic stenosis, vitamin deficiencies Diagnostic Inquiry: -Orthostatic vitals to r/o orthostatic hypotension -Echocardiogram to r/o valvular heart disease (aortic stenosis) -Vitamin B12, folate levels to r/o vitamin deficiency causes -q4HR neurological checks -Consider neurology consult Treatment Plan: -No current recommendation #Cholelithiasis #Leukocytosis #Lactic acidosis #Concern for possible cholecystitis #GERD Initial Presentation: -Incidental RUQ abdominal pain not mentioned by patient until directly elicited on interview and physical exam -Possible associated symptoms: heartburn, diarrhea -No jaundice or fever Work-up History: -Initial labs (03/14/2025) significant for elevated WBC 20.2, elevated lactic acid 2.9 (later uptrended to 3.6), elevated total bilirubin 4.5 (with elevated direct bilirubin 1.1), elevated AST 61, normal ALT 19, and normal alkaline phosphatase 64 -03/14/2025 abdominal ultrasound showed possible cholelithiasis but was otherwise negative for cholecystitis, common bile duct stones, hepatomegaly, and liver lesions -Currently suspect that leukocytosis, lactic acidosis, and other abnormal lab values are 2/2 bacteria involved in cholelithiasis picture Diagnostic Inquiry: -Blood cultures to scan for possible infectious causes of leukocytosis -HIDA scan to further clarify possible gallbladder and liver etiologies for RUQ pain and abnormal labs -Trend lactic acid level -General surgery consult Treatment Plan: -IV Zosyn 3.375 gm q6HR to cover infectious etiologies associated with cholecystitis/cholelithiasis -IV Protonix 40 mg qD for GERD symptoms #Chronic medical problems #T2DM Diagnostic Inquiry: -No current recommendation Treatment Plan: -Insulin sliding scale Hospital Management: Disposition: work-up and management of ground-level fall with rhabdomyolysis, presyncope work-up, and possible symptomatic cholelithiasis Diet: NPO starting 00:00, 03/15/2025 GI Prophylaxis: Protonix Bowel Prophylaxis: senna DVT Prophylaxis: heparin CODE STATUS: Full Code I have examined the patient and conferred with my attending, Dr. Benjamin, and my senior resident, Dr. Hollis, regarding them. Stephen Guzman, DO PGY-1 Internal Medicine Attending Provider Attestation/Addendum I attest that I was physically present for the evaluation, physical examination, lab and imaging review of the patient with the residents. I discussed the case with the residents and agree with the findings and plans of care as documented above. After examination of the patient and review of the clinical data I feel that this patient needs admission to the hospital for further treatment/evaluation. 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 Patient has been having dizzy spells for few times, more than 3 and also having indigestion. After the fall today, patient was unable to wake up and was on the floor for long time. She uses walker and cane to ambulate at baseline. In the ED, vital signs were stable except for mild tachycardia. Lab results show elevated WBC, 20.2, elevated lactate at 2.9, which up trended to 3.6, total bilirubin 4.5, direct bilirubin 1.1, AST 61, creatinine kinase 1609 glucose 208, BUN/creatinine 22/1.1. Head CT was done, which was negative for acute hemorrhage, mass effect or midline shift, chest x-ray did not show any active disease. Abdominal ultrasound showed cholelithiasis but was negative for cholecystitis. We will admit the patient for management of rhabdomyolysis secondary to ground-level fall. We will start her on aggressive IV hydration, patient had concern for pain around her right shoulder and left knee, we will obtain x-ray of both areas. We will also obtain physical therapy evaluation. There is also concern for presyncope with episodes of lightheadedness/dizziness, EKG showed sinus rhythm without ST changes. We will obtain orthostatic vitals, echocardiography, B12 and folate levels. With the patient's leukocytosis, right upper quadrant tenderness, positive Hannah sign, cholelithiasis on ultrasound, elevated bilirubin, discussed with general surgery, recommended further workup for to exclude cholecystitis, we will obtain HIDA scan in the morning, we will keep patient n.p.o. after midnight for HIDA. Started on IV antibiotics and obtain blood culture, we will discontinue if HIDA is negative. Also noted to have lactic acidosis, we will trend lactate with aggressive IV hydration. Started on insulin regimen for diabetes. Irving Benjamin MD
[2025-03-14 23:30] LABS: Reflex Lactate? Y
[2025-03-15] VITALS (7 sets, daily range): BP systolic 110–148; BP diastolic 65–88; PULSE 75–101; RESP 16–20; TEMP 36.3–37; O2SAT 91–97
[2025-03-15] LABS: Lactic Acid, 3 HR 3.6 mMol/L (0.4-2.0)
[2025-03-15] MEDS: PIPER/TAZO 3.375 GM PREMIX 3.375 GM/50 ML BAG IV ×3 (01:29→21:07)
[2025-03-15 06:33] LABS: Basophils # (Auto) 0.1 Thou/mm3 (0.0-0.2); Basophils % (Auto) 0 % (0-2.5); Eosinophils # (Auto) 0.0 Thou/mm3 (0.0-0.5); Eosinophils % (Auto) 0 % (0-10); Hematocrit 36.2 % (36.0-46.0); Hemoglobin 12.3 g/dL (12.0-16.0); Immature Granulocytes Auto 0.08 Thou/mm3 (0.00-0.00); Lymphocytes # (Auto) 1.9 Thou/mm3 (1.0-4.8); Lymphocytes % (Auto) 12 % (10-50); Mean Corpuscular HGB Conc 34.0 g/dl (31.0-37.0); Mean Corpuscular Hemoglobin 30.1 pg (25.0-35.0); Mean Corpuscular Volume 89 fL (80-100); Monocytes # (Auto) 1.2 Thou/mm3 (0.0-0.8); Monocytes % (Auto) 8 % (0-12); Neutrophils # (Auto) 12.0 Thou/mm3 (1.8-7.7); Neutrophils % (Auto) 79 % (37-80); Nucleated Red Blood Cell # 0.00 Thou/mm3 (0.00-0.00); Nucleated Red Blood Cell % 0 /100 WBC (0); Platelet Count 160 Thou/mm3 (140-440); RDW Standard Deviation 44.4 fL (36.4-46.3); Red Blood Count 4.09 Miln/mm3 (4.00-5.20); White Blood Count 15.2 Thou/mm3 (3.6-11.0)
[2025-03-15 06:55] LABS: Alanine Aminotransferase 14 U/L (10-49); Albumin, Serum 3.4 gm/dL (3.4-4.8); Albumin/Globulin Ratio 1.5 (1.2-2.2); Alkaline Phosphatase 57 U/L (46-116); Anion Gap 11 (7-16); Aspartate Amino Transferase 45 U/L (0-34); BUN/Creatinine Ratio 25 Ratio (12-20); Bilirubin,Total 3.5 mg/dL (0.3-1.2); Blood Urea Nitrogen 25 mg/dL (9-23); Calcium 8.4 mg/dL (8.3-10.6); Calcium (Corrected) 8.9 mg/dL (8.5-10.1); Carbon Dioxide 24.1 mMol/L (20.0-31.0); Chloride 106 mMol/L (98-107); Creatinine (Component) 1.0 mg/dL (0.6-1.3); Estimated Creatinine Clearance 42.2 mL/min (>60); Globulin 2.2 gm/dL (2.3-3.5); Glucose 155 mg/dL (74-106); Magnesium 1.1 mg/dL (1.6-2.6); Osmolality,Calculated 288 (275-295); Potassium 3.3 mMol/L (3.4-5.1); Sodium 141 mMol/L (136-145); Total Protein 5.6 gm/dL (5.7-8.2); eGFR 55 See Note
[2025-03-15] MEDS: POTASSIUM CHL 10 mEq IVPB 10 MEQ/100 ML BAG 100 MEQ IV ×4 (07:38→15:48)
[2025-03-15] MEDS: Magnesium Sulfate 2 GM Ivpb 2 GM/50 ML BAG IV (07:38)
[2025-03-15] MEDS: MAGNESIUM OXIDE 400 MG TABLET PO (07:38)
--- NOTE | 2025-03-15 09:03 | XR_ITS ---
Examination: Bilateral hips, AP pelvis, 5 views Technique: AP, lateral views both hips, AP pelvis, 5 views Exam date and time: March 15, 2025 0938 hours INDICATIONS: Patient fell today with injury of both hips, bilateral hip pain. FINDINGS: Severe osteopenia No hip or pelvic fracture depicted IMPRESSION: No acute hip or pelvic fracture depicted If pain persists, recommend 1 day follow-up AP pelvis
--- NOTE | 2025-03-15 09:03 | XR_ITS ---
Examination: CT cervical spine without contrast 2-D sagittal reconstructions 2-D coronal reconstructions 3-D reconstructions. Exam date and time:March 15, 2025 1254 hours INDICATIONS: Patient fell today with injury to the neck, neck pain CTDI:vol (mGy) 13.6 DLP: (mGycm) 337. Technique: Multiple 2 mm axial sections of the cervical spine have been obtained. The coronal and sagittal reconstructions have been obtained. 3-D reconstructions have been obtained. Low dose protocols were performed. One or more of the following dose reduction techniques were used; automated exposure control, adjustment of the mA and/or KV according to patient size, use of iterative reconstruction technique. Findings: Axial sections demonstrate intact base of the skull. C1 exhibit satisfactory relationship to the odontoid. No acute cervical vertebral body fracture seen. Alignment posterior spinous processes satisfactory. Impression: No acute cervical fracture.
[2025-03-15] MEDS: HEPARIN SOD INJ 5000 UNIT/ML VIAL SC ×2 (10:01→21:07)
[2025-03-15] MEDS: HYDROcodone/APAP 5/325 TABLET 1 TAB PO (10:13)
[2025-03-15 10:35] LABS: Lactate (Lactic Acid) 0.9 mMol/L (0.4-2.0)
--- NOTE | 2025-03-15 10:55 | PC.SS ---
ETHNOLOGY TEACHER attempted to meet with pt. at bedside, patient was not alert and oriented. ETHNOLOGY TEACHER placed phone call to brother Tone who is listed as next of kin, did not answer, ETHNOLOGY TEACHER left voicemail.
[2025-03-15 10:57] LABS: Bilirubin,Direct 1.0 mg/dL (0.0-0.3); Bilirubin,Indirect 2.3 mg/dL (0.0-1.1); Bilirubin,Total 3.3 mg/dL (0.3-1.2)
--- NOTE | 2025-03-15 11:27 | PC.RT ---
Attempted to do EEG at 11:20; however, patients room was empty. TRAN Stout informed me that patient is having procedure done at this time in nuclear medicine. Will attempt at a later time.
[2025-03-15 11:30] LABS: Creatine Kinase 726 U/L (34-171)
--- NOTE | 2025-03-15 11:34 | PD.SURCONS ---
HPI Consult details Consult date: 03/15/25 Reason for consultation narrative: Patient was seen for gallstones and right upper quadrant abdominal pain History of present illness: History of present illness revealed that the patient fell down stayed in floor for 16 hours and she was admitted here with a diagnosis of rhabdomyolysis Meds Home Medications and Allergies Home Medications ?Medication ?Instructions ?Recorded ?Confirmed ?Type gabapentin 300 mg capsule 300 mg PO BID ##270 12/25/15 03/15/25 History dulaglutide 0.75 mg/0.5 mL 1 units IM QWEEK ##6 04/28/16 03/15/25 History subcutaneous pen injector (Trulicity) acetaminophen 650 mg 650 mg PO Q12H PRN Pain 09/26/19 03/15/25 History tablet,extended release (Tylenol Arthritis Pain) allopurinol 100 mg tablet 100 mg PO QDAY 09/26/19 03/15/25 History omeprazole magnesium 10 mg oral 20 mg PO QDAY 09/26/19 11/04/20 History suspension,delayed release (Prilosec) simvastatin 20 mg tablet 20 mg PO QDAY 09/26/19 03/15/25 History Allergies Allergy/AdvReac Type Severity Reaction Status Date / Time codeine Allergy Mild SHAKES Verified 11/04/20 18:09 meperidine AdvReac Severe SEVERE Verified 11/04/20 18:09 VOMITING Exam Vital Signs Temp Pulse Resp BP Pulse Ox O2 Del Method 98.0 F 93 16 124/73 96 Room Air 03/15/25 08:00 03/15/25 08:00 03/15/25 08:00 03/15/25 08:00 03/15/25 08:00 03/15/25 08:00 Narrative Exam Examination of the vital signs are normal Routine Abdominal Exam Comments: Abdominal examination shows diffuse tenderness all over and is not localized to the right upper quadrant Results Results: Laboratory Laboratory Narrative: WBC is 20,000 Results: Imaging Imaging narrative: Patient has gallstones and distended gallbladder. Assessment & Plan Additional Assessment Additional comments: Impression: Cholelithiasis questionable symptomatic Rhabdomyolysis Plan Plan: I do not know whether the gallbladder is causing symptoms but there is definitely stone. We shall wait for the HIDA scan to see if there is an element of acute cholecystitis and then consider management after the present problem is resolved.
--- NOTE | 2025-03-15 11:53 | PC.SS ---
Patient is an 84 year old female presenting to the hospital for GLF, Rhabdomyolysis. CAUSTIC LOADER spoke to next of kin Tone cortes, brother to verify information. At this time patient is not alert and oriented. Pt. brother verified that patient lives alone at address [address]. Pt. brother stated that she uses walker to ambulate and complete ADL?s. Pt. brother was unable to verify PCP and requested to discuss d/c plan at a later time. d/c: unknown next of kin: Tone Cortes ph: [phone] PCP: unknown
[2025-03-15] MEDS: Magnesium Sulfate 4 GM Ivpb 4 GM/50 ML BAG IV (13:28)
--- NOTE | 2025-03-15 14:29 | PC.SS ---
Rounding note: PT. recommended SNF, [facility] will follow up with pt. and pt. family.
--- NOTE | 2025-03-15 15:02 | PD.RESPRO ---
Documentation for date of: 03/15/25 Senior resident attestation: Patient evaluated and examined at the bedside, plan of care discussed with rest of the team including my attending physician, except as noted. Patient is currently being worked up for syncope, patient quite possibly has undiagnosed dementia which is severe to the point patient has both short-term and long-term forgetfulness, patient does not remember the circumstances of her fall, per initial ED note, EMS arrival there were feces on the floor next the patient. The patient has no recollection of the event. We consulted neurology for possible evaluation of seizure or stroke/vascular dementia. EEG ordered, pending MRI brain. Spoke to patient's brother over the phone update regarding patient's condition was given. Patient was noted to have creatinine kinase elevation, less likely rhabdomyolysis, now downtrending CK, was treated with IV fluids. Also found to have cholelithiasis, general surgery was consulted, the patient is asymptomatic, no RUQ tenderness, no fever or leukocytosis abdominal pain. Given patient's age and asymptomatic cholelithiasis, patient can have elective cholecystectomy at a later date. Delia PGY3 Subjective Subjective Interval history: Labs reviewed and patient examined at the bedside. Patient noted ground level falls from her bed. Cannot remember how she fell or if she lost consciousness at the time. In ED, Head CT was negative for hemorrhage, Chest/Shoulder/Knee XR was negative for fracture. Hip and Pelvis XR and Cervial Spine CT was also negative.HIDA scan showed gallbladder activity and negative for cystic duct obstruction. CK level dropped from 1609 to 726. Currently receving IV zosyn 3.375g q6hr Had past events of syncope. EEG ordered, ECHO ordered. Diffuse abdominal pain. Sharp pain at LLQ on palpitation. Has palpitations. Denies headache, N/V, fevers or chills. Negative Hannah's sign. Exam Vital Signs Temp Pulse Resp BP Pulse Ox O2 Del Method 98.6 F 96 20 128/88 H 97 Room Air 03/15/25 12:03/15/25 12:03/15/25 12:03/15/25 12:00 03/15/25 12:03/15/25 12:00 Narrative Exam General: No acute distress, well nourished, drowsy Eye: PERRL, EOMI, normal conjunctiva, no scleral icterus HENT: Normocephalic, atraumatic, hearing intact to conversation at normal volume, moist oral mucosa Neck: Supple, non-tender, no JVD, no lymphadenopathy Lungs: Non-labored respirations, symmetric chest rise, Clear to auscultate bilaterally Heart: Peripheral pulses intact bilaterally, Tachycardic. Abdomen: Soft, non-distended, Sharp LLQ abd tenderness on palpation. Negative Hannah's sign. Musculoskeletal: Normal range of motion and strength Skin: Skin is warm, dry, no rashes. Bilateral bruising and/or skin abrasions of right lateral knee and left medial knee. Psychiatric: Cooperative, appropriate mood and affect Neuro: Cranial nerves II-XII grossly intact. Muscle Strength 3/5 throughout upper and lower extremities bilaterally. Sensations intact to light touch. Objective Labs 03/16/25 05:08 03/16/25 05:08 Labs: Laboratory Results - last 24 hr 03/14/25 03/14/25 03/14/25 08:22 14:54 15:07 WBC 20.2 H RBC 4.93 Hgb 14.8 Hct 42.3 MCV 86 MCH 30.0 MCHC 35.0 RDW Std Deviation 42.1 Plt Count 190 D Neut % (Auto) 89 H Lymph % (Auto) 4 L [place] % (Auto) 6 Eos % (Auto) 0 Baso % (Auto) 0 Neut # (Auto) 18.0 H Lymph # (Auto) 0.9 L [place] # (Auto) 1.3 H Eos # (Auto) 0.0 Baso # (Auto) 0.0 Immature Gran # (Auto) 0.07 H Absolute Nucleated RBC 0.00 Immature Gran % 0 Nucleated RBC % 0 PT 13.3 H INR 1.2 Sodium 141 Potassium 3.9 Chloride 100 Carbon Dioxide 26.4 Anion Gap 15 BUN 22 Creatinine 1.1 Estim Creat Clear Calc 38.4 L eGFR 49 L BUN/Creatinine Ratio 20 Glucose 208 H Calculated Osmolality 290 Lactic Acid 2.9 H Calcium 9.5 Corrected Calcium 9.5 Magnesium Total Bilirubin 4.5 H Direct Bilirubin Indirect Bilirubin AST 61 H ALT 19 Alkaline Phosphatase 64 Total Creatine Kinase 1609 H Troponin I < 0.020 B-Natriuretic Peptide 27 Total Protein 7.1 Albumin 4.3 Globulin 2.8 Albumin/Globulin Ratio 1.5 Procalcitonin 0.15 Ur Collection Type Catheter Urine Color Yellow Urine Clarity Clear Urine pH 6.0 Ur Specific [place] 1.025 Urine Protein 1+ A Urine Glucose (UA) Negative Urine Ketones 1+ A Urine Blood Trace-Intact Urine Nitrite Negative Urine Bilirubin 1+ A Urine Urobilinogen (Auto) 1.0 Ur Leukocyte Esterase Trace Urine RBC 0 Urine WBC 0 Ur Squamous Epith Cells 0 Urine Bacteria None Ur Culture Indicated? Not Indicated 03/14/25 03/14/25 03/15/25 17:35 23:50 04:50 WBC 15.2 H D RBC 4.09 Hgb 12.3 D Hct 36.2 MCV 89 MCH 30.1 MCHC 34.0 RDW Std Deviation 44.4 Plt Count 160 D Neut % (Auto) 79 Lymph % (Auto) 12 [place] % (Auto) 8 Eos % (Auto) 0 Baso % (Auto) 0 Neut # (Auto) 12.0 H Lymph # (Auto) 1.9 [place] # (Auto) 1.2 H Eos # (Auto) 0.0 Baso # (Auto) 0.1 Immature Gran # (Auto) 0.08 H Absolute Nucleated RBC 0.00 Immature Gran % 1 H Nucleated RBC % 0 PT INR Sodium 141 Potassium 3.3 L D Chloride 106 Carbon Dioxide 24.1 Anion Gap 11 BUN 25 H Creatinine 1.0 Estim Creat Clear Calc 42.2 L eGFR 55 L BUN/Creatinine Ratio 25 H Glucose 155 H D Calculated Osmolality 288 Lactic Acid 3.6 H Calcium 8.4 Corrected Calcium 8.9 Magnesium 1.1 L Total Bilirubin 3.5 H D Direct Bilirubin 1.1 H Indirect Bilirubin AST 45 H ALT 14 Alkaline Phosphatase 57 Total Creatine Kinase Troponin I B-Natriuretic Peptide Total Protein 5.6 L Albumin 3.4 D Globulin 2.2 L Albumin/Globulin Ratio 1.5 Procalcitonin Ur Collection Type Urine Color Urine Clarity Urine pH Ur Specific [place] Urine Protein Urine Glucose (UA) Urine Ketones Urine Blood Urine Nitrite Urine Bilirubin Urine Urobilinogen (Auto) Ur Leukocyte Esterase Urine RBC Urine WBC Ur Squamous Epith Cells Urine Bacteria Ur Culture Indicated? 03/15/25 10:15 WBC RBC Hgb Hct MCV MCH MCHC RDW Std Deviation Plt Count Neut % (Auto) Lymph % (Auto) [place] % (Auto) Eos % (Auto) Baso % (Auto) Neut # (Auto) Lymph # (Auto) [place] # (Auto) Eos # (Auto) Baso # (Auto) Immature Gran # (Auto) Absolute Nucleated RBC Immature Gran % Nucleated RBC % PT INR Sodium Potassium Chloride Carbon Dioxide Anion Gap BUN Creatinine Estim Creat Clear Calc eGFR BUN/Creatinine Ratio Glucose Calculated Osmolality Lactic Acid 0.9 Calcium Corrected Calcium Magnesium Total Bilirubin 3.3 H Direct Bilirubin 1.0 H Indirect Bilirubin 2.3 H AST ALT Alkaline Phosphatase Total Creatine Kinase 726 H D Troponin I B-Natriuretic Peptide Total Protein Albumin Globulin Albumin/Globulin Ratio Procalcitonin Ur Collection Type Urine Color Urine Clarity Urine pH Ur Specific [place] Urine Protein Urine Glucose (UA) Urine Ketones Urine Blood Urine Nitrite Urine Bilirubin Urine Urobilinogen (Auto) Ur Leukocyte Esterase Urine RBC Urine WBC Ur Squamous Epith Cells Urine Bacteria Ur Culture Indicated? Quality Measures Quality Measures none Advance care planning discussed with:: patient Assessment & Plan Assessment Current Active Medications: Generic Name Dose Route Start Last Admin Trade Name Freq PRN Reason Stop Dose Admin Acetaminophen 650 mg 03/14/25 21:55 Acetaminophen 325 Mg Tablet PO 04/13/25 21:54 Q6H PRN PAIN SCALE 1-3 (mild Hydrocodone Bitart/Acetaminophen 1 tab 03/14/25 22:04 03/15/25 10:13 Hydrocodone/Apap 5/325 Tablet PO 03/19/25 22:03 1 tab Q6HR PRN Administration Pain 4-10 Dextrose 25 ml 03/14/25 21:55 Dextrose 50%-Water Inj 50 Ml Syringe IV 04/13/25 21:54 Q15MIN PRN BG 50-70 responsive npo pt Dextrose 50 ml 03/14/25 21:55 Dextrose 50%-Water Inj 50 Ml Syringe IV 04/13/25 21:54 Q15MIN PRN BG <50 OR BG <70 & pt unresponsive Glucagon 1 mg 03/14/25 21:55 Glucagon Inj 1 Mg Vial IM Q15MIN PRN BG <70, and no IV access Heparin Sodium (Porcine) 5,000 unit 03/15/25 09:00 03/15/25 10:01 Heparin Sod Inj 5000 Unit/Ml Vial SC 03/29/25 08:59 5,000 unit Q12HR ALLY Administration Piperacillin/Tazobactam/Dextrose 3.375 gm in 50 mls @ 12.5 mls/hr 03/15/25 09:30 03/15/25 10:01 Zosyn IV 03/22/25 09:29 12.5 mls/hr Q8HR ALLY Administration Insulin Human Lispro 0 unit 03/15/25 06:00 03/15/25 13:32 Insulin Lispro (Admelog) 1 Unit/0.01 Ml Unit SC 04/14/25 05:59 Not Given Q6HR ALLY Protocol Ondansetron HCl 4 mg 03/14/25 21:55 Ondansetron Inj 2 Mg/Ml Inj 2 Ml IVP 04/13/25 21:54 Q6H PRN NAUSEA OR VOMITING Protocol Pantoprazole Sodium 40 mg 03/15/25 09:00 03/15/25 10:13 Pantoprazole Inj 40 Mg Vial IVP 04/14/25 08:59 40 mg QDAY ALLY Administration Sennosides 1 tab 03/14/25 21:55 Senna Tablet PO 04/13/25 21:54 QDAY PRN constipation Protocol Plan Bria Kendrick is an 84-year-old F with a PMH of 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 Patient was admitted for the work-up and management of ground-level fall with rhabdomyolysis, presyncope work-up, and possible symptomatic cholelithiasis. #Syncope #Ground level fall -Multiple past episodes of dizziness and falls. Notes that patient rolled off her bed and cannot remember what happened after the fall. Shortly after the fall, patient could not get up. -Initial labs (03/14/2025) significant for elevated blood glucose 208, indicating T2DM and possible hypoglycemic etiologies for recent dizziness -03/14/[address] negative for hemorrhage -Possible differentials at this time: vasovagal syncope, hypoglycemia, orthostatic hypotension, aortic stenosis, vitamin deficiencies Plan: -Orthostatic vitals to r/o orthostatic hypotension -Echocardiogram to r/o valvular heart disease (aortic stenosis) -Vitamin B12, folate levels to r/o vitamin deficiency causes -q4HR neurological checks -EEG ordered #Cholelithiasis #Leukocytosis-Resolving #Lactic acidosis- Resolved #Concern for possible cholecystitis-Ruled out #GERD -Incidental RUQ abdominal pain not mentioned by patient until directly elicited on interview and physical exam -Possible associated symptoms: heartburn, diarrhea -No jaundice or fever -Initial labs (03/14/2025) significant for elevated WBC 20.2, elevated lactic acid 2.9 (later uptrended to 3.6), elevated total bilirubin 4.5 (with elevated direct bilirubin 1.1), elevated AST 61, normal ALT 19, and normal alkaline phosphatase 64. Current lactic acid: 0.6, WBC level of 15.2 -03/14/2025 abdominal ultrasound showed possible cholelithiasis but was otherwise negative for cholecystitis, common bile duct stones, hepatomegaly, and liver lesions -Blood cultures to scan for possible infectious causes of leukocytosis -HIDA scan: gallbladder activity and negative for cystic duct obstruction. -Patient has indirect hyperbilirubinemia. Plan: -IV Zosyn 3.375 gm q6HR to cover infectious etiologies associated with cholecystitis/cholelithiasis -IV Protonix 40 mg qD for GERD symptoms #Rhabdomyolysis- Ruled out -Fell out of bed on 03/14/2025 and spent entire day on concrete floor of house (2nd occurrence) -BIBA 03/14/2025 and newly immobile upon admission (capable of self-ambulation with walker/cane before episode) -Significant history includes: dizziness starting a few days ago, left knee replacement -Initial labs (03/14/2025) significant for elevated total creatine kinase 1609 suggesting rhabdomyolysis. Current Creatine kinase is 726. -No KARENA becasue normal BUN 22 and creatinine 1.1 -03/14/[address] negative for hemorrhage -03/14/2025 CXR, shoulder X-ray, and knee X-ray all negative for fractures -UA: negative for urine RBC Plan: -Pain management (PO Tylenol 650 mg q6HR prn for pain 1-3, PO [place] 5/325 q6HR prn for pain 4-10) -Strict I's & O's to monitor urine output and hydration status -PT consult #Chronic medical problems #T2DM Diagnostic Inquiry: -No current recommendation Treatment Plan: -Insulin sliding scale Hospital Management: Disposition: work-up and management of ground-level fall with rhabdomyolysis, presyncope work-up, and possible symptomatic cholelithiasis Diet: NPO starting 00:00, 03/15/2025 GI Prophylaxis: Protonix Bowel Prophylaxis: senna DVT Prophylaxis: heparin CODE STATUS: Full Code Assessment and plan discussed with my attending physician Dr. Martines and Dr. Lin (PGY-3) Dr. Brennan (PGY-1)- Internal medicine resident Attending Provider Attestation/Addendum I have examined the patient, reviewed labs and imaging findings, discussed the case with the resident(s), and reviewed entered orders. I agree with the plan of care as outlined in this note, with these additional summaries/recommendations: Patient seen at bedside. No acute overnight events. On further history it appears patient likely had loss of consciousness with syncopal episode. Order echocardiogram, monitor telemetry, and obtain orthostatic vital signs. Order physical therapy. Patient reports she lives alone but does manage her ADLs. Patient diagnosed with rhabdomyolysis as well. Total CK1 609 on admission and repeat in 700s. No evidence of heme pigment induced nephropathy at this time. Patient was found to have significantly elevated total bilirubin suspicious for acute cholecystitis. General surgery consulted and patient will go for HIDA scan. Mild electrolyte abnormalities with hypokalemia and hypomagnesia, replacements given. Lactic acidosis resolved. Continue insulin sliding scale for diabetes mellitus type 2 with Accu-Cheks. Target blood sugar of 140-180 while hospitalized. Patient updated on the plan and agreement. All questions answered to satisfaction. Please see residents note for additional details and management. Dr. Conrad MD
--- NOTE | 2025-03-15 15:06 | PC.SS ---
Addendum entered by RUPERTO Coronado 03/15/25 16:19: [employer] submitted SNF referral, authorization pending. Addendum entered by RUPERTO Coronado 03/15/25 15:53: update: pt. will need transportation when d/c. Original Note: BOAT [employer]KER met with patient at bedside. Patient was alert and oriented. BOAT [employer]AR MAKER verified patient PCP, pt. stated that PCP is [facility], is unsure of doctor name. Pt. stated that at home she has a walker that she uses only at night when getting up from bed. Pt. stated that she also has a glucometer at home. Pt. stated that she spoke to doctor about SNF placement but she is unsure and would like some time to think about it. [employer]ER informed pt. that authorization would need to be obtained, pt. confirmed.
--- NOTE | 2025-03-15 16:00 | PC.PT ---
Patient is safe to stand pivot transfer to a bedside commode with 1 staff assist. RN made aware.
--- NOTE | 2025-03-15 16:01 | PD.SURPROG ---
Documentation for date of: 03/15/25 Subjective Subjective Brief History: History of present illness revealed that the patient fell down stayed in floor for 16 hours and she was admitted here with a diagnosis of rhabdomyolysis Exam Vital Signs Temp Pulse Resp BP Pulse Ox O2 Del Method 98.6 F 96 20 128/88 H 97 Room Air 03/15/25 12:00 03/15/25 12:00 03/15/25 12:00 03/15/25 12:00 03/15/25 12:00 03/15/25 12:00 Assessment & Plan Assessment Additional comments: Ptiemts HIDA scan showed normal visualization of the gallbladder ruling out cystic duct obstruction and hence acute cholecystitis Plan I will arrange for cholecystectomy when she is free of other medical problems.
[2025-03-15] MEDS: INSULIN LISPRO (AdmeLOG) 1 UNIT/0.01 ML UNIT SC (17:28)
--- NOTE | 2025-03-15 23:08 | RESP.EEG ---
Pt refused eeg at this time. Pt states I woke her up, and she is too cold and tired to take test. RN Aldo aware. This was 2nd attempt @2300 03/15 1st attempt by day shift at 1120am, 03/15.
[2025-03-16] VITALS (7 sets, daily range): BP systolic 108–134; BP diastolic 60–79; PULSE 83–101; RESP 13–20; TEMP 36.1–36.6; O2SAT 92–98; BMI 11.0
--- NOTE | 2025-03-16 | XR_ITS ---
Examination: MRI brain without intravenous contrast. Date and time of exam: March 16, 2025 1826 hours INDICATIONS: Dizziness episodes syncopal episodes frequent falls this week Technique: Multiple axial and sagittal images of the brain obtained. Siemens high-resolution 1.5 Marlene short bore scanners utilized. Sagittal sections, T1-weighted, TR 500, TE 14, are performed. Axial sections proton-density and T2-weighted have been obtained. Inversion recovery axial images, TR 9, 260, TE 111, TI 2500. Diffusion weighted images, axial sections, TR 4800, TE 128, B value 1000 Axial sections, ADC map, TR 4800, TE 128 Findings: Enlargement of the sella turcica is not present. The optic chiasm and infundibular are not remarkable. Prepontine and interpeduncular cisterns are not enlarged. There is no localized enlargement of the medulla or corrie. Fourth ventricle and cerebellar tonsils appear normal in position. No subacute area of hemorrhage density is seen. Mass in the cerebellopontine angle region is not evident. Globes symmetrical. Orbital musculature including medial lateral rectus muscles do not exhibit abnormality. Diffusion-weighted images demonstrate no focus of restricted diffusion. Increased white matter signal prominent Mass effect upon the ventricular system is not identified. Impression: Negative for acute hemorrhage mass effect or midline shift No acute infarct Prominent chronic microvascular white matter change. Significant bilateral mastoiditis
[2025-03-16] MEDS: PIPER/TAZO 3.375 GM PREMIX 3.375 GM/50 ML BAG IV ×3 (05:11→22:02)
[2025-03-16 06:27] LABS: Basophils # (Auto) 0.1 Thou/mm3 (0.0-0.2); Basophils % (Auto) 1 % (0-2.5); Eosinophils # (Auto) 0.1 Thou/mm3 (0.0-0.5); Eosinophils % (Auto) 1 % (0-10); Hematocrit 36.7 % (36.0-46.0); Hemoglobin 12.0 g/dL (12.0-16.0); Immature Granulocytes Auto 0.05 Thou/mm3 (0.00-0.00); Lymphocytes # (Auto) 1.4 Thou/mm3 (1.0-4.8); Lymphocytes % (Auto) 13 % (10-50); Mean Corpuscular HGB Conc 32.7 g/dl (31.0-37.0); Mean Corpuscular Hemoglobin 29.9 pg (25.0-35.0); Mean Corpuscular Volume 91 fL (80-100); Monocytes # (Auto) 0.7 Thou/mm3 (0.0-0.8); Monocytes % (Auto) 6 % (0-12); Neutrophils # (Auto) 8.9 Thou/mm3 (1.8-7.7); Neutrophils % (Auto) 79 % (37-80); Nucleated Red Blood Cell # 0.00 Thou/mm3 (0.00-0.00); Nucleated Red Blood Cell % 0 /100 WBC (0); Platelet Count 149 Thou/mm3 (140-440); RDW Standard Deviation 46.2 fL (36.4-46.3); Red Blood Count 4.02 Miln/mm3 (4.00-5.20); White Blood Count 11.3 Thou/mm3 (3.6-11.0)
[2025-03-16 07:11] LABS: Alanine Aminotransferase 16 U/L (10-49); Albumin, Serum 3.4 gm/dL (3.4-4.8); Albumin/Globulin Ratio 1.5 (1.2-2.2); Alkaline Phosphatase 63 U/L (46-116); Anion Gap 8 (7-16); Aspartate Amino Transferase 38 U/L (0-34); BUN/Creatinine Ratio 17 Ratio (12-20); Bilirubin,Total 2.6 mg/dL (0.3-1.2); Blood Urea Nitrogen 17 mg/dL (9-23); Calcium 8.0 mg/dL (8.3-10.6); Calcium (Corrected) 8.5 mg/dL (8.5-10.1); Carbon Dioxide 24.9 mMol/L (20.0-31.0); Chloride 105 mMol/L (98-107); Creatinine (Component) 1.0 mg/dL (0.6-1.3); Estimated Creatinine Clearance 42.2 mL/min (>60); Globulin 2.2 gm/dL (2.3-3.5); Glucose 167 mg/dL (74-106); Magnesium 2.1 mg/dL (1.6-2.6); Osmolality,Calculated 281 (275-295); Phosphorous 1.8 mg/dL (2.4-5.1); Potassium 4.1 mMol/L (3.4-5.1); Sodium 138 mMol/L (136-145); Total Protein 5.6 gm/dL (5.7-8.2); eGFR 55 See Note
[2025-03-16] MEDS: HEPARIN SOD INJ 5000 UNIT/ML VIAL SC ×2 (09:03→20:10)
[2025-03-16] MEDS: HYDROcodone/APAP 5/325 TABLET 1 TAB PO ×2 (09:10→17:21)
--- NOTE | 2025-03-16 09:10 | PC.SS ---
SS update: CUTTER DOWN spoke to pt. about accepting facilities for SNF, pt. stated she would like facility in [place], pt. would like to start insurance authorization for [facility]. CUTTER DOWN spoke to Crystal at [facility], Crystal will start insurance authorization.
[2025-03-16] MEDS: NAPH,KPH MBDB 1 PACKET (1.5 GM) PO (10:42)
[2025-03-16] MEDS: INSULIN LISPRO (AdmeLOG) 1 UNIT/0.01 ML UNIT SC ×3 (12:11→20:16)
--- NOTE | 2025-03-16 13:44 | ESPR_ITS ---
Documentation for date of: 03/16/25 Senior resident attestation: Patient evaluated and examined at the bedside, plan of care discussed with rest of the team including my attending physician, except as noted. Patient is currently being worked up for syncope, patient quite possibly has undiagnosed dementia which is severe to the point patient has both short-term and long-term forgetfulness, patient does not remember the circumstances of her fall, per initial ED note, EMS arrival there were feces on the floor next the patient. The patient has no recollection of the event. We consulted neurology for possible evaluation of seizure or stroke/vascular dementia. EEG ordered, pending MRI brain. Spoke to patient's brother over the phone update regarding patient's condition was given. Patient was noted to have creatinine kinase elevation, less likely rhabdomyolysis, now downtrending CK, was treated with IV fluids. Also found to have cholelithiasis, general surgery was consulted, the patient is asymptomatic, no RUQ tenderness, no fever or leukocytosis abdominal pain. Given patient's age and asymptomatic cholelithiasis, patient can have elective cholecystectomy at a later date. Quresh PGY3 Subjective Subjective Interval history: No Overnight events. Labs reviewed and patient examined at the bedside. Planned for EEG and MRI head/brain w/o contrast. The patient exhibits significant short- term memory impairment, unable to retain or recall details shared seconds prior. It is currently unclear whether the patient's presentation reflects her baseline cognitive status or represents a decline. If declining, the pattern, whether stepwise or progressive, has yet to be determined. Patient denies chest pain, shortness of breathe, palpitations, abdominal pain, fever, and chills. Exam Vital Signs Temp Pulse Resp BP Pulse Ox O2 Del Method 97.8 F 99 20 134/72 H 98 Room Air 03/16/25 12:00 03/16/25 12:03/16/25 12:03/16/25 12:00 03/16/25 12:03/16/25 12:00 Narrative Exam General: No acute distress, well nourished, drowsy Eye: PERRL, EOMI, normal conjunctiva, no scleral icterus HENT: Normocephalic, atraumatic, hearing intact to conversation at normal volume, moist oral mucosa Neck: Supple, non-tender, no JVD, no lymphadenopathy Lungs: Non-labored respirations, symmetric chest rise, Clear to auscultate bilaterally Heart: Peripheral pulses intact bilaterally, Tachycardic. Abdomen: Soft, non-distended, Sharp LLQ abd tenderness on palpation. Negative Hannah's sign. Musculoskeletal: Normal range of motion and strength Skin: Skin is warm, dry, no rashes. Bilateral bruising and/or skin abrasions of right lateral knee and left medial knee. Psychiatric: Cooperative, appropriate mood and affect Neuro: Cranial nerves II-XII grossly intact. Muscle Strength 3/5 throughout upper and lower extremities bilaterally. Sensations intact to light touch. A&O x2. Objective Labs 03/17/25 04:52 03/17/25 04:52 Labs: Laboratory Results - last 24 hr 03/16/25 05:08 WBC 11.3 H RBC 4.02 Hgb 12.0 Hct 36.7 MCV 91 MCH 29.9 MCHC 32.7 RDW Std Deviation 46.2 Plt Count 149 Neut % (Auto) 79 Lymph % (Auto) 13 [place] % (Auto) 6 Eos % (Auto) 1 Baso % (Auto) 1 Neut # (Auto) 8.9 H Lymph # (Auto) 1.4 [place] # (Auto) 0.7 Eos # (Auto) 0.1 Baso # (Auto) 0.1 Immature Gran # (Auto) 0.05 H Absolute Nucleated RBC 0.00 Immature Gran % 0 Nucleated RBC % 0 Sodium 138 Potassium 4.1 D Chloride 105 Carbon Dioxide 24.9 Anion Gap 8 BUN 17 Creatinine 1.0 Estim Creat Clear Calc 42.2 L eGFR 55 L BUN/Creatinine Ratio 17 Glucose 167 H Calculated Osmolality 281 Calcium 8.0 L Corrected Calcium 8.5 Phosphorus 1.8 L Magnesium 2.1 Total Bilirubin 2.6 H D AST 38 H ALT 16 Alkaline Phosphatase 63 Total Protein 5.6 L Albumin 3.4 Globulin 2.2 L Albumin/Globulin Ratio 1.5 Quality Measures Quality Measures none Advance care planning discussed with:: patient Assessment & Plan Assessment Current Active Medications: Generic Name Dose Route Start Last Admin Trade Name Freq PRN Reason Stop Dose Admin Acetaminophen 650 mg 03/14/25 21:55 Acetaminophen 325 Mg Tablet PO 04/13/25 21:54 Q6H PRN PAIN SCALE 1-3 (mild Hydrocodone Bitart/Acetaminophen 1 tab 03/14/25 22:04 03/16/25 09:10 Hydrocodone/Apap 5/325 Tablet PO 03/19/25 22:03 1 tab Q6HR PRN Administration Pain 4-10 Dextrose 25 ml 03/14/25 21:55 Dextrose 50%-Water Inj 50 Ml Syringe IV 04/13/25 21:54 Q15MIN PRN BG 50-70 responsive npo pt Dextrose 50 ml 03/14/25 21:55 Dextrose 50%-Water Inj 50 Ml Syringe IV 04/13/25 21:54 Q15MIN PRN BG <50 OR BG <70 & pt unresponsive Glucagon 1 mg 03/14/25 21:55 Glucagon Inj 1 Mg Vial IM Q15MIN PRN BG <70, and no IV access Heparin Sodium (Porcine) 5,000 unit 03/15/25 09:00 03/16/25 09:03 Heparin Sod Inj 5000 Unit/Ml Vial SC 03/29/25 08:59 5,000 unit Q12HR ALLY Administration Piperacillin/Tazobactam/Dextrose 3.375 gm in 50 mls @ 12.5 mls/hr 03/15/25 09:30 03/16/25 05:11 Zosyn IV 03/22/25 09:29 12.5 mls/hr Q8HR ALLY Administration Insulin Human Lispro 0 unit 03/15/25 21:00 03/16/25 12:11 Insulin Lispro (Admelog) 1 Unit/0.01 Ml Unit SC 04/14/25 20:59 2 unit ACHS ALLY Administration Protocol Ondansetron HCl 4 mg 03/14/25 21:55 Ondansetron Inj 2 Mg/Ml Inj 2 Ml IVP 04/13/25 21:54 Q6H PRN NAUSEA OR VOMITING Protocol Pantoprazole Sodium 40 mg 03/15/25 09:00 03/16/25 09:03 Pantoprazole Inj 40 Mg Vial IVP 04/14/25 08:59 40 mg QDAY ALLY Administration Sennosides 1 tab 03/14/25 21:55 Senna Tablet PO 04/13/25 21:54 QDAY PRN constipation Protocol Plan Bria Kendrick is an 84-year-old F with a PMH of 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 Patient was admitted for the work-up and management of ground-level fall with rhabdomyolysis, presyncope work-up, and possible symptomatic cholelithiasis. #Syncope #Ground level fall #Short term memory impairment -Multiple past episodes of dizziness and falls. Notes that patient rolled off her bed and cannot remember what happened after the fall. Shortly after the fall, patient could not get up. -Initial labs (03/14/2025) significant for elevated blood glucose 208, indicating T2DM and possible hypoglycemic etiologies for recent dizziness -03/14/[address] negative for hemorrhage -Possible differentials at this time: vasovagal syncope, hypoglycemia, orthostatic hypotension, aortic stenosis, vitamin deficiencies -ECHO (03/14/2025): Normal LV size. Mild LVH. Estimated EF at 55-60%. The RV is normal in size and systolic function. Mild calcific aortic stenosis with PEAK grdaient 33 mm HG VMAX 2,9 m/sec, Mild tricuspid regurgitation -The patient exhibits significant short-term memory impairment, unable to retain or recall details shared seconds prior. It is currently unclear whether the patient's presentation reflects her baseline cognitive status or represents a decline. If declining, the pattern, whether stepwise or progressive, has yet to be determined. Plan: -Orthostatic vitals to r/o orthostatic hypotension -Vitamin B12, folate levels to r/o vitamin deficiency causes -q4HR neurological checks -EEG and MRI head/brain w/o contrast pending. #Cholelithiasis #Leukocytosis-Resolving #Lactic acidosis- Resolved #Concern for possible cholecystitis-Ruled out #GERD -Incidental RUQ abdominal pain not mentioned by patient until directly elicited on interview and physical exam -Possible associated symptoms: heartburn, diarrhea -No jaundice or fever -Initial labs (03/14/2025) significant for elevated WBC 20.2, elevated lactic acid 2.9 (later uptrended to 3.6), elevated total bilirubin 4.5 (with elevated direct bilirubin 1.1), elevated AST 61, normal ALT 19, and normal alkaline phosphatase 64. Current lactic acid: 0.6, WBC level of 15.2 -03/14/2025 abdominal ultrasound showed possible cholelithiasis but was otherwise negative for cholecystitis, common bile duct stones, hepatomegaly, and liver lesions -Blood cultures to scan for possible infectious causes of leukocytosis -HIDA scan: gallbladder activity and negative for cystic duct obstruction. -Patient has indirect hyperbilirubinemia. Plan: -IV Zosyn 3.375 gm q6HR to cover infectious etiologies associated with cholecystitis/cholelithiasis -IV Protonix 40 mg qD for GERD symptoms #Rhabdomyolysis- Ruled out -Fell out of bed on 03/14/2025 and spent entire day on concrete floor of house (2nd occurrence) -BIBA 03/14/2025 and newly immobile upon admission (capable of self-ambulation with walker/cane before episode) -Significant history includes: dizziness starting a few days ago, left knee replacement -Initial labs (03/14/2025) significant for elevated total creatine kinase 1609 suggesting rhabdomyolysis. Current Creatine kinase is 726. -No KARENA becasue normal BUN 22 and creatinine 1.1 -03/14/[address] negative for hemorrhage -03/14/2025 CXR, shoulder X-ray, and knee X-ray all negative for fractures -UA: negative for urine RBC Plan: -Pain management (PO Tylenol 650 mg q6HR prn for pain 1-3, PO [employer] 5/325 q6HR prn for pain 4-10) -Strict I's & O's to monitor urine output and hydration status -PT consult #Chronic medical problems #T2DM Diagnostic Inquiry: -No current recommendation Treatment Plan: -Insulin sliding scale Hospital Management: Disposition: work-up and management of ground-level fall with rhabdomyolysis, presyncope work-up, and possible symptomatic cholelithiasis Diet: NPO starting 00:00, 03/15/2025 GI Prophylaxis: Protonix Bowel Prophylaxis: senna DVT Prophylaxis: heparin CODE STATUS: Full Code Assessment and plan discussed with my attending physician Dr. Martines and Dr. Lin (PGY-3) Dr. Brennan (PGY-1)- Internal medicine resident Attending Provider Attestation/Addendum I have examined the patient, reviewed labs and imaging findings, discussed the case with the resident(s), and reviewed entered orders. I agree with the plan of care as outlined in this note, with these additional summaries/recommendations: Patient seen at bedside. No acute overnight events. On further history it appears patient likely had loss of consciousness with syncopal episode. Echocardiogram showed EF 55-60% with mild calcific aortic stenosis that I doubt is etiology of possible syncope. No evidence of arrhythmia on telemetry. Patient was seen by physical therapy who recommends SNF placement when medically cleared fro discharge. Patient reports she lives alone. Patient diagnosed with rhabdomyolysis as well. Total CK 1609 on admission and repeat in 700s. No evidence of heme pigment induced nephropathy at this time. Patient was found to have significantly elevated total bilirubin suspicious for acute cholecystitis. General surgery consulted and with plans for cholecystectomy once more improved. Mild electrolyte abnormalities with hypokalemia and hypomagnesia present, replacements given. Lactic acidosis resolved. Continue insulin sliding scale for diabetes mellitus type 2 with Accu-Cheks. Target blood sugar of 140-180 while hospitalized. Patient updated on the plan and agreement. All questions answered to satisfaction. Please see residents note for additional details and management. Dr. Conrad MD
--- NOTE | 2025-03-16 14:03 | PD.RESCONSUL ---
HPI Data of Consult Requesting Physician: Irving Benjamin MD Admitting Provider: Irving Benjamin MD Attending Provider: Irving Benjamin MD Primary Care Provider: Physician No Primary/Family Consult Narrative History of present illness: Ms. 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 She reports that she rolled off her bed and was unable to get back up. Per chart review, after she fell, she spent the entire day on the floor and was neither able to reach her refrigerator to obtain sustenance nor transport herself to the toilet to relieve herself. It was not until she called her brother who told her to call 911 that she decided to call for help and was brought by ambulance to the hospital. She does not remember this episode. She has had 1 episode of falling off the bed while sleeping in the past. She also does not remember this episode. She denies history of smoking, alcohol use, recreational drug use. She notes that she lives alone and has been independent in her daily activities. In the ED, vitals showed: BP 123/80 HR 102 RR 16 temp 97.8 SpO2 98% on room air. Elevated lactic acid 2.9 (later up trended to 3.6), elevated total bilirubin 4.5 (with elevated direct bilirubin 1.1), elevated AST 61, normal ALT 19, significantly elevated total creatine kinase 1609. Head CT was negative for acute hemorrhage, mass effect, or midline shift. Shoulder x-ray and knee x-ray were unremarkable. Abdominal US significant for cholelithiasis. Patient admitted for syncope workup, rhabdomyolysis management, symptomatic cholelithiasis management. Neurology consulted for repeated falls with retrograde amnesia. Patient examined at bedside today, reports that she feels a bit confused and that her thoughts are foggy. She denies history of heart failure, stroke, TIA, arrhythmias, DVT. She was unable to list her home medications. She denies headache, dizziness, nausea, vomiting, acute changes in vision. Patient repeatedly asks the same questions throughout the day as she does not remember asking them before. cc:: cc: Irving Benjamin MD Review of Systems Review of Systems Narrative Review of Systems: 14 point review of system negative other than HPI Exam Vital Signs Temp Pulse Resp BP Pulse Ox O2 Del Method 97.8 F 99 20 134/72 H 98 Room Air 03/16/25 12:00 03/16/25 12:00 03/16/25 12:00 03/16/25 12:00 03/16/25 12:00 03/16/25 12:00 Narrative Exam General: No acute distress, well nourished Eye: PERRL, EOMI, normal conjunctiva, no scleral icterus HENT: Normocephalic, atraumatic, hearing intact to conversation at normal volume, moist oral mucosa Neck: Supple, non-tender, no JVD, no lymphadenopathy Lungs: Non-labored respirations, symmetric chest rise Heart: Peripheral pulses intact bilaterally Abdomen: Soft, non-tender, non-distended Musculoskeletal: Normal range of motion and strength Skin: Bruising noted on b/l knees, left knee replacement scar healed Psychiatric: Cooperative, appropriate mood. Labile affect Neurologic: Mental status: Orientation: AOx2 Communication: Patient is cooperative and can follow simple instructions Language: Speech fluent, normal rate and volume, comprehension intact Cranial nerves: CN II: Visual russell intact CN III: Pupils equal, round, and reactive to light CN III, IV, : No gaze deviation, no nystagmus Horizontal pursuit: intact Vertical pursuit: intact Ptosis: none CN V: Facial sensation to light touch intact bilaterally at the forehead, cheeks, and jaw line CN VII: Face symmetric, no facial droop appreciated CN VIII: Able to hear and respond to conversation at normal volume, intact to finger rub CN IX, X: Palate elevation symmetric, uvula midline CN XI: Head turn and shoulder shrug strong, symmetric bilaterally CN XII: Normal tongue protrusion without deviation, no fasciculations Motor: Normal bulk and tone No atrophy No abnormal movements or fasciculations Muscle strength: Shoulder abduction: R 5/5 L 3/5 (limited 2/2 pain) Elbow flexion: R 5/5 L 4/5 Elbow extension: R 5/5 L 4/5 Hip flexion: R 3/5 L 5/5 (exam limited 2/2 pain) Sensory: RUE: Light touch intact LUE: Light touch intact RLE: Light touch intact LLE: Light touch intact Reflexes: Biceps (C5-6): R 2+ L 2+ Brachioradialis (C5-6): R 2+ L 2+ Triceps (C7-8): R 2+ L 2+ No clonus Plantar reflex downgoing bilaterally Cerebellum: RUE: No dysmetria (finger to nose) LUE: No dysmetria (finger to nose) Results Labs 03/17/25 04:52 03/17/25 04:52 Labs: Short CBC 03/16/25 Range/Units 05:08 WBC 11.3 H (3.6-11.0) Thou/mm3 Hgb 12.0 (12.0-16.0) g/dL Hct 36.7 (36.0-46.0) % Plt Count 149 (140-440) Thou/mm3 BMP 03/16/25 05:08 Sodium 138 Potassium 4.1 D Chloride 105 Carbon Dioxide 24.9 BUN 17 Creatinine 1.0 Glucose 167 H Calcium 8.0 L Liver Function 03/16/25 Range/Units 05:08 Total Bilirubin 2.6 H D (0.3-1.2) mg/dL AST 38 H (0-34) U/L ALT 16 (10-49) U/L Alkaline Phosphatase 63 (46-116) U/L Albumin 3.4 (3.4-4.8) gm/dL Quality Measures Quality Measures none Advance care planning discussed with:: patient Medications Home Medications and Allergies Home Medications ?Medication ?Instructions ?Recorded ?Confirmed ?Type gabapentin 300 mg capsule 300 mg PO BID ##270 12/25/15 03/15/25 History dulaglutide 0.75 mg/0.5 mL 1 units IM QWEEK ##6 04/28/16 03/15/25 History subcutaneous pen injector (Trulicity) acetaminophen 650 mg 650 mg PO Q12H PRN Pain 09/26/19 03/15/25 History tablet,extended release (Tylenol Arthritis Pain) allopurinol 100 mg tablet 100 mg PO QDAY 09/26/19 03/15/25 History omeprazole magnesium 10 mg oral 20 mg PO QDAY 09/26/19 11/04/20 History suspension,delayed release (Prilosec) simvastatin 20 mg tablet 20 mg PO QDAY 09/26/19 03/15/25 History Allergies Allergy/AdvReac Type Severity Reaction Status Date / Time codeine Allergy Mild SHAKES Verified 11/04/20 18:09 meperidine AdvReac Severe SEVERE Verified 11/04/20 18:09 VOMITING Visit Medications Acetaminophen (Acetaminophen 325 Mg Tablet) 650 mg PO Q6H PRN PRN Reason: PAIN SCALE 1-3 (mild Stop: 04/13/25 21:54 Hydrocodone Bitart/Acetaminophen (Hydrocodone/Apap 5/325 Tablet) 1 tab PO Q6HR PRN PRN Reason: Pain 4-10 Stop: 03/19/25 22:03 Last Admin: 03/16/25 09:10 Dose: 1 tab Dextrose (Dextrose 50%-Water Inj 50 Ml Syringe) 25 ml IV Q15MIN PRN PRN Reason: BG 50-70 responsive npo pt Stop: 04/13/25 21:54 Dextrose (Dextrose 50%-Water Inj 50 Ml Syringe) 50 ml IV Q15MIN PRN PRN Reason: BG <50 OR BG <70 & pt unresponsive Stop: 04/13/25 21:54 Glucagon (Glucagon Inj 1 Mg Vial) 1 mg IM Q15MIN PRN PRN Reason: BG <70, and no IV access Heparin Sodium (Porcine) (Heparin Sod Inj 5000 Unit/Ml Vial) 5,000 unit SC Q12HR [facility] Stop: 03/29/25 08:59 Last Admin: 03/16/25 09:03 Dose: 5,000 unit Piperacillin/Tazobactam/Dextrose (Zosyn) 3.375 gm in 50 mls @ 12.5 mls/hr IV Q8HR [facility] Stop: 03/22/25 09:29 Last Admin: 03/16/25 05:11 Dose: 12.5 mls/hr Insulin Human Lispro (Insulin Lispro (Admelog) 1 Unit/0.01 Ml Unit) 0 unit SC [facility]; Protocol Stop: 04/14/25 20:59 Last Admin: 03/16/25 12:11 Dose: 2 unit Ondansetron HCl (Ondansetron Inj 2 Mg/Ml Inj 2 Ml) 4 mg IVP Q6H PRN; Protocol PRN Reason: NAUSEA OR VOMITING Stop: 04/13/25 21:54 Pantoprazole Sodium (Pantoprazole Inj 40 Mg Vial) 40 mg IVP QDAY ALLY Stop: 04/14/25 08:59 Last Admin: 03/16/25 09:03 Dose: 40 mg Sennosides (Senna Tablet) 1 tab PO QDAY PRN; Protocol PRN Reason: constipation Stop: 04/13/25 21:54 Discontinued Medications Lactated Ringer's (Lactated Ringers) 1,000 mls @ 999 mls/hr IV .Q1H1M ONE Stop: 03/14/25 18:26 Last Infusion: 03/14/25 19:03 Dose: Infused Sodium Chloride (Ns) 1,000 mls @ 999 mls/hr IV .Q1H1M ONE Stop: 03/14/25 22:15 Last Infusion: 03/14/25 22:27 Dose: Infused Lactated Ringer's (Lactated Ringers) 1,000 mls @ 75 mls/hr IV .[id number] [facility] Stop: 03/15/25 11:19 Last Admin: 03/14/25 22:05 Dose: Not Given Lactated Ringer's (Lactated Ringers) 1,000 mls @ 150 mls/hr IV .Q6H40M [facility] Stop: 03/15/25 04:42 Last Admin: 03/14/25 22:33 Dose: 150 mls/hr Piperacillin/Tazobactam/Dextrose (Zosyn) 3.375 gm in 50 mls @ 100 mls/hr IV X1 ONE Stop: 03/15/25 01:14 Last Infusion: 03/15/25 01:59 Dose: Infused Potassium Chloride (Kcl Ivpb) 10 meq in 100 mls @ 100 mls/hr IV Q1H [facility] Stop: 03/15/25 11:20 Last Admin: 03/15/25 15:48 Dose: 100 mls/hr Magnesium Sulfate (Magnesium Sulfate Ivpb) 2 gm in 50 mls @ 25 mls/hr IV X1 ONE Stop: 03/15/25 09:21 Last Admin: 03/15/25 07:38 Dose: 25 mls/hr Magnesium Sulfate (Magnesium Sulfate Ivpb) 4 gm in 50 mls @ 12.5 mls/hr IV X1 ONE Stop: 03/15/25 14:59 Last Admin: 03/15/25 13:28 Dose: 12.5 mls/hr Insulin Human Lispro (Insulin Lispro (Admelog) 1 Unit/0.01 Ml Unit) 0 unit SC ACHS [facility]; Protocol Stop: 04/14/25 07:29 Insulin Human Lispro (Insulin Lispro (Admelog) 1 Unit/0.01 Ml Unit) 0 unit SC Q6HR ALLY; Protocol Stop: 04/14/25 05:59 Last Admin: 03/15/25 17:28 Dose: 1 unit Magnesium Oxide (Magnesium Oxide 400 Mg Tablet) 400 mg PO X1 ONE Stop: 03/15/25 07:22 Last Admin: 03/15/25 07:38 Dose: 400 mg Potassium Phos/Sodium Phos (Naph,[facility] Mbdb 1 Packet (1.5 Gm)) 1 packet PO X1 ONE Stop: 03/16/25 07:47 Last Admin: 03/16/25 10:42 Dose: 1 packet Assessment & Plan Plan # Multiple bed-level falls # AMS With loss of memory regarding the events, patient could not get up and was immobile after fall until she was able to call EMS (unknown amount of time later), developing elevated CK AOx2, strength exam limited 2/2 pain. Patient forgets conversations she had earlier in the day A1C 6.9 (January 2025) Lactic acidosis: 2.9 --> 3.6 --> 0.7 CK 1609 --> 726 Troponin negative BNP negative TSH 1.63, T4 1.31 (January 2025) B12 956 high (January 2025) Vitamin D 30 WNL (January 2025) Folate 12.86 (January 2025) Lipids (January 2025): Triglycerides 130, Cholesterol 124, LDL 36, HDL 62 CT head 03/14: Negative for acute hemorrhage, midline shift, mass effect XR: No acute hip/pevlic, C spine, Right shoulder, Left knee fracture/dislocation. Total left knee arthroplasty with satisfactory alignment EKG: NSR HR 93, QTc 441 TTE: LVEF 55-60%, mild calcific aortic stenosis, mild LVH, mild tricuspid regurgitation DDX: dementia, delirium, seizure, TIA, stroke, syncope, autonomic dysfunction, hypoglycemia/hyperglycemia, electrolyte/metabolic disturbances, hypoxia, medication effects, hypotension No evidence of infection, arrhythmia, hematoma/IPH, severe structural hear disease. Most likely dementia given patient's presentation Plan: - MRI brain w/o contrast - EEG # Leukocytosis-improving # Lactic acidosis, resolved # GERD # Cholelithiasis # Indirect hyperbilirubinemia - HIDA scan: gallbladder activity and negative for cystic duct obstruction - plan for o/p cholecystectomy # Elevated CK Total CK 1609 --> 726 #T2DM A1C 6.9 (January 2025) Initial blood glucose: 208 UA 1+ protein, 1+ ketones, 1+ bilirubin Plan: - Management per primary Plan discussed with Dr. Amilcar Guevara, PGY1 Attending Provider Attestation/Addendum Patient was seen and examined at the bedside and I agreed with resident's findings, assessment and plan of care. Fu with EEG and MRI espinoza. Might need rehab placement as she lives alone before admission.
--- NOTE | 2025-03-16 14:41 | PC.SS ---
Rounding note: Pt. pending [facility] authorization with [facility], MRI pending, possible d/c tomorrow.
[2025-03-17] VITALS (8 sets, daily range): BP systolic 122–151; BP diastolic 68–92; PULSE 79–90; RESP 15–22; TEMP 36.1–36.7; O2SAT 96–98; BMI 13.0
[2025-03-17] MEDS: PIPER/TAZO 3.375 GM PREMIX 3.375 GM/50 ML BAG IV ×2 (05:00→14:23)
[2025-03-17 05:34] LABS: Basophils # (Auto) 0.0 Thou/mm3 (0.0-0.2); Basophils % (Auto) 1 % (0-2.5); Eosinophils # (Auto) 0.2 Thou/mm3 (0.0-0.5); Eosinophils % (Auto) 2 % (0-10); Hematocrit 34.4 % (36.0-46.0); Hemoglobin 11.4 g/dL (12.0-16.0); Immature Granulocytes Auto 0.04 Thou/mm3 (0.00-0.00); Lymphocytes # (Auto) 1.6 Thou/mm3 (1.0-4.8); Lymphocytes % (Auto) 19 % (10-50); Mean Corpuscular HGB Conc 33.1 g/dl (31.0-37.0); Mean Corpuscular Hemoglobin 29.8 pg (25.0-35.0); Mean Corpuscular Volume 90 fL (80-100); Monocytes # (Auto) 0.7 Thou/mm3 (0.0-0.8); Monocytes % (Auto) 8 % (0-12); Neutrophils # (Auto) 5.9 Thou/mm3 (1.8-7.7); Neutrophils % (Auto) 70 % (37-80); Nucleated Red Blood Cell # 0.00 Thou/mm3 (0.00-0.00); Nucleated Red Blood Cell % 0 /100 WBC (0); Platelet Count 168 Thou/mm3 (140-440); RDW Standard Deviation 45.4 fL (36.4-46.3); Red Blood Count 3.82 Miln/mm3 (4.00-5.20); White Blood Count 8.4 Thou/mm3 (3.6-11.0)
[2025-03-17 06:16] LABS: Alanine Aminotransferase 17 U/L (10-49); Albumin, Serum 3.3 gm/dL (3.4-4.8); Albumin/Globulin Ratio 1.5 (1.2-2.2); Alkaline Phosphatase 57 U/L (46-116); Anion Gap 10 (7-16); Aspartate Amino Transferase 30 U/L (0-34); BUN/Creatinine Ratio 15 Ratio (12-20); Bilirubin,Total 1.8 mg/dL (0.3-1.2); Blood Urea Nitrogen 18 mg/dL (9-23); Calcium 8.0 mg/dL (8.3-10.6); Calcium (Corrected) 8.6 mg/dL (8.5-10.1); Carbon Dioxide 25.7 mMol/L (20.0-31.0); Chloride 104 mMol/L (98-107); Creatinine (Component) 1.2 mg/dL (0.6-1.3); Estimated Creatinine Clearance 35.2 mL/min (>60); Globulin 2.2 gm/dL (2.3-3.5); Glucose 159 mg/dL (74-106); Magnesium 2.0 mg/dL (1.6-2.6); Osmolality,Calculated 284 (275-295); Phosphorous 2.3 mg/dL (2.4-5.1); Potassium 3.9 mMol/L (3.4-5.1); Sodium 140 mMol/L (136-145); Total Protein 5.5 gm/dL (5.7-8.2); eGFR 44 See Note
[2025-03-17] MEDS: HYDROcodone/APAP 5/325 TABLET 1 TAB PO ×2 (09:20→17:08)
[2025-03-17] MEDS: HEPARIN SOD INJ 5000 UNIT/ML VIAL SC (09:20)
[2025-03-17] MEDS: NAPH,KPH MBDB 1 PACKET (1.5 GM) PO (09:40)
--- NOTE | 2025-03-17 10:26 | PC.SS ---
Addendum entered by Meg Watt 03/17/25 16:16: Patient medically clear and able to discharge to [facility]. [facility]. TRAN Stout informed of ETA 1800 for transportation. SS attempted to notify patient's sibling Tone Adler [phone], a message was left. Original Note: SS confirmed with [facility] insurance auth. has been obtained. Patient can be accepted today, 03/17/25 once she is medically clear. Patient is pending EEG. Dr. Ramsey informed.
[2025-03-17] MEDS: INSULIN LISPRO (AdmeLOG) 1 UNIT/0.01 ML UNIT SC ×2 (11:46→17:23)
--- NOTE | 2025-03-17 13:51 | PD.RESPRO ---
Documentation for date of: 03/17/25 Subjective Subjective Interval history: No Overnight events. Labs reviewed and patient examined at the bedside. Patient still exhibits severe short-term memory loss. Exam Vital Signs Temp Pulse Resp BP Pulse Ox O2 Del Method 97.9 F 79 15 133/92 H 98 Room Air 03/17/25 11:55 03/17/25 11:56 03/17/25 11:55 03/17/25 11:55 03/17/25 11:55 03/17/25 11:55 Objective Labs 03/17/25 04:52 03/17/25 04:52 Labs: Laboratory Results - last 24 hr 03/17/25 04:52 WBC 8.4 RBC 3.82 L Hgb 11.4 L Hct 34.4 L MCV 90 MCH 29.8 MCHC 33.1 RDW Std Deviation 45.4 Plt Count 168 Neut % (Auto) 70 Lymph % (Auto) 19 [place] % (Auto) 8 Eos % (Auto) 2 Baso % (Auto) 1 Neut # (Auto) 5.9 Lymph # (Auto) 1.6 [place] # (Auto) 0.7 Eos # (Auto) 0.2 Baso # (Auto) 0.0 Immature Gran # (Auto) 0.04 H Absolute Nucleated RBC 0.00 Immature Gran % 1 H Nucleated RBC % 0 Sodium 140 Potassium 3.9 Chloride 104 Carbon Dioxide 25.7 Anion Gap 10 BUN 18 Creatinine 1.2 Estim Creat Clear Calc 35.2 L eGFR 44 L BUN/Creatinine Ratio 15 Glucose 159 H Calculated Osmolality 284 Calcium 8.0 L Corrected Calcium 8.6 Phosphorus 2.3 L Magnesium 2.0 Total Bilirubin 1.8 H D AST 30 ALT 17 Alkaline Phosphatase 57 Total Protein 5.5 L Albumin 3.3 L Globulin 2.2 L Albumin/Globulin Ratio 1.5 Quality Measures Quality Measures none Assessment & Plan Assessment Current Active Medications: Generic Name Dose Route Start Last Admin Trade Name Freq PRN Reason Stop Dose Admin Acetaminophen 650 mg 03/14/25 21:55 Acetaminophen 325 Mg Tablet PO 04/13/25 21:54 Q6H PRN PAIN SCALE 1-3 (mild Hydrocodone Bitart/Acetaminophen 1 tab 03/14/25 22:04 03/17/25 09:20 Hydrocodone/Apap 5/325 Tablet PO 03/19/25 22:03 1 tab Q6HR PRN Administration Pain 4-10 Dextrose 25 ml 03/14/25 21:55 Dextrose 50%-Water Inj 50 Ml Syringe IV 04/13/25 21:54 Q15MIN PRN BG 50-70 responsive npo pt Dextrose 50 ml 03/14/25 21:55 Dextrose 50%-Water Inj 50 Ml Syringe IV 04/13/25 21:54 Q15MIN PRN BG <50 OR BG <70 & pt unresponsive Glucagon 1 mg 03/14/25 21:55 Glucagon Inj 1 Mg Vial IM Q15MIN PRN BG <70, and no IV access Heparin Sodium (Porcine) 5,000 unit 03/15/25 09:00 03/17/25 09:20 Heparin Sod Inj 5000 Unit/Ml Vial SC 03/29/25 08:59 5,000 unit Q12HR ALLY Administration Piperacillin/Tazobactam/Dextrose 3.375 gm in 50 mls @ 12.5 mls/hr 03/15/25 09:30 03/17/25 05:00 Zosyn IV 03/22/25 09:29 12.5 mls/hr Q8HR ALLY Administration Insulin Human Lispro 0 unit 03/15/25 21:00 03/17/25 11:46 Insulin Lispro (Admelog) 1 Unit/0.01 Ml Unit SC 04/14/25 20:59 1 unit ACHS ALLY Administration Protocol Ondansetron HCl 4 mg 03/14/25 21:55 Ondansetron Inj 2 Mg/Ml Inj 2 Ml IVP 04/13/25 21:54 Q6H PRN NAUSEA OR VOMITING Protocol Pantoprazole Sodium 40 mg 03/15/25 09:00 03/17/25 09:20 Pantoprazole Inj 40 Mg Vial IVP 04/14/25 08:59 40 mg QDAY ALLY Administration Sennosides 1 tab 03/14/25 21:55 Senna Tablet PO 04/13/25 21:54 QDAY PRN constipation Protocol
--- NOTE | 2025-03-17 15:02 | ESDS_ITS ---
Planned Discharge Date 03/17/25 DS: Providers Provider Date of admission: 03/14/25 21:56 Primary care physician: Physician No Primary/Family Admitting Provider: Irving Benjamin MD Attending Provider on Admission: Irving Benjamin MD Consults: 03/14/25 22:12 Consult to General Surgery Routine Comment: Possible cholecystitis Consulting Provider: Kary Solo 03/15/25 00:22 [facility] Referral - Knowledge Deficit Routine Comment: Positive screening for knowledge deficit needs. 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 ED course: In the ED, vitals showed: BP 123/80 HR 102 RR 16 temp 97.8 SpO2 98% on room air. CBC showed elevated WBC 20.2 with neutrophilic predominance but was otherwise unremarkable. Coagulation panel showed slightly elevated PT 13.3. CMP showed reduced EGFR 49, elevated blood glucose 208, elevated lactic acid 2.9 (later up trended to 3.6), elevated total bilirubin 4.5 (with elevated direct bilirubin 1.1), elevated AST 61, normal ALT 19, significantly elevated total creatine kinase 1609. UA showed 1+ protein, 1+ ketones, and 1+ bilirubin. CXR was negative for pneumonia and pulmonary embolism. Head CT was negative for acute hemorrhage, mass effect, or midline shift. Shoulder x-ray and knee x-ray were unremarkable. Abdominal ultrasound was significant for cholelithiasis but negative for cholecystitis, common bile duct stones, hepatomegaly, and liver lesions. EKG was unremarkable. In the ED, patient was given 1 L LR bolus x 1, 1 L NS bolus x 1, and started on 1 L LR maintenance fluid at 150 mL/hr. Hospital Course: Upon admission, patient noted she had multiple past episodes of dizziness and falls. This time patient rolled off her bed and cannot remember what happened after the fall. Shortly after the fall, patient could not get up. ECHO (03/14/2025) showed Normal LV size. Mild LVH. Estimated EF at 55-60%. The RV is normal in size and systolic function. Mild calcific aortic stenosis with PEAK grdaient 33 mm HG VMAX 2,9 m/sec, Mild tricuspid regurgitation. EEG (03/17/2025) was normal, with no focal, diffuse or generalized abnormalities. MRI brain w/o contrast (03/16/2025) showed Negative for acute hemorrhage mass effect or midline shift, No acute infarct Prominent chronic microvascular white matter change. Significant bilateral mastoiditis. Seizure and Stoke has been ruled out, but patient exhibited significant short- term memory impairment, unable to retain or recall details shared seconds prior. It was unclear whether the patient's presentation reflects her baseline cognitive status or represents a decline. If declining, the pattern, whether stepwise or progressive, had yet to be determined. Patient's Mini-mental state examination (MMSE) score was 19 showing mild-moderate cognitive impairment. Possible elective cholecystectomy has been delayed as patient was asymptomatic. #Syncope #Ground level fall #Short term memory impairment #Cholelithiasis #Leukocytosis-Resolving #Lactic acidosis- Resolved #Concern for possible cholecystitis-Ruled out #GERD #Rhabdomyolysis- Ruled out #Chronic medical problems #T2DM Please followup with Neurologist Dr Ybarra in 2 weeks , You must Stop driving until cleared by neurologist and the follow Dr Ybarra's recommendations. Added new medication , aspirin 81mg once daily resume rest of home medications. Follow up with Primary care physician with labs within 3-5 days of discharge. If symptoms persist or worsen, return to the Emergency Department. Safe to discharge to SNF Assessment and plan discussed with my attending physician Dr. Conrad Brennan (PGY-1)- Internal medicine resident Time Spent with Patient Time attestation: Total time spent providing and/or coordinating discharge services: Time spent: Greater than 30 minutes Exam Vital Signs Temp Pulse Resp BP Pulse Ox O2 Del Method 97.9 F 79 15 133/92 H 98 Room Air 03/17/25 11:55 03/17/25 11:56 03/17/25 11:55 03/17/25 11:55 03/17/25 11:55 03/17/25 11:55 Narrative Exam General: No acute distress, well nourished, drowsy Eye: PERRL, EOMI, normal conjunctiva, no scleral icterus HENT: Normocephalic, atraumatic, hearing intact to conversation at normal volume, moist oral mucosa Neck: Supple, non-tender, no JVD, no lymphadenopathy Lungs: Non-labored respirations, symmetric chest rise, Clear to auscultate bilaterally Heart: Peripheral pulses intact bilaterally, Tachycardic. Abdomen: Soft, non-distended, Sharp LLQ abd tenderness on palpation. Negative Hannah's sign. Musculoskeletal: Normal range of motion and strength Skin: Skin is warm, dry, no rashes. Bilateral bruising and/or skin abrasions of right lateral knee and left medial knee. Psychiatric: Cooperative, appropriate mood and affect Neuro: Cranial nerves II-XII grossly intact. Muscle Strength 3/5 throughout upper and lower extremities bilaterally. Sensations intact to light touch. A&O x2. Discharge Plan Plan Patient Disposition: Xfer Skilled Nsg Fac (SNF) Care Plan Goals: Please followup with Neurologist Dr Ybarra in 2 weeks , You must Stop driving until cleared by neurologist and the follow Dr Ybarra's recommendations. Added new medication , aspirin 81mg once daily resume rest of home medications. Follow up with Primary care physician with labs within 3-5 days of discharge. If symptoms persist or worsen, return to the Emergency Department. Prescriptions/Referrals Prescriptions/Med Rec: New aspirin 81 mg tablet 81 mg PO QDAY Qty: 30 0RF Continued gabapentin 300 MG capsule 300 mg PO BID Qty: 270 Trulicity 0.75 MG/0.5 ML pen injector 1 units IM QWEEK Qty: 6 allopurinol 100 mg Tablet 100 mg PO QDAY simvastatin 20 mg Tablet 20 mg PO QDAY Rx Instructions: PT TAKES EVERY OTHER 4 DAYS Prilosec 10 mg Susp,Delayed Release For Recon 20 mg PO QDAY acetaminophen [Tylenol Arthritis Pain] 650 mg Tablet Extended Release 650 mg PO Q12H PRN (Reason: Pain) tramadol 50 mg tablet 50 mg PO Q6H PRN (Reason: pelvic fracture) Qty: 10 0RF Referrals: No Primary/Family,Physician [Primary Care Provider] - Tom Fitzgerald MD [Physician] - Patient/Caregiver Discharge Instructions Education Materials: Cognitive Impairment Mild, Seizures and Epilepsy Print Language: Taiwanese Stand Alone Forms: Kimmy Award Info., Patient Portal Info Letter Discharge Order Discharge Orders: Discharge (Routine); Ordered 03/17/25 Ordered By: Mani Lin Quality Discharge Quality Measures VTE prophylaxis MD Attestestation MD Attestation I have examined the patient, reviewed labs and imaging findings, discussed the case with the resident(s), and reviewed entered orders. I agree with the plan of care as outlined in this note. Time Spent: [address] Conrad MD
--- NOTE | 2025-03-17 18:24 | PC.NURSE ---
Patient belonging missing: casualty claims supervisor, [place], was notified and requested to retrieve the patients belongings from safe prior to discharge (per patient belongings form, credit cards and other belongings were placed in the safe, see belongings sheet from 03/15/25). However, no items were found in safe under patients name. Charge nurse, Shani, notified. Charge nurse advised for secondary patients belongings form be filled out with the belongings patient would be taking to SNF. A secondary patients belongings form was completed to document the items the patient took to SNF. Incident has been noted and will be followed up accordingly. casualty claims supervisor, Patient, and charge nurse all aware. Report given to Subha.
--- NOTE | 2025-03-17 23:57 | PD.VPROG1 ---
Telemedicine visit statement This visit was conducted with the use of phone was obtained on 03/17/25. Documentation for date of: 03/17/25 Subjective Subjective Interval history: Patient is in medsurg. no new symptoms reported, mental status: is back to baseline. Virtual exam Vital Signs Temp Pulse Resp BP Pulse Ox O2 Del Method 98.0 F 86 16 151/81 H 96 Room Air 03/17/25 16:20 03/17/25 16:20 03/17/25 16:20 03/17/25 16:20 03/17/25 16:20 03/17/25 16:20 Objective Labs 03/17/25 04:52 03/17/25 04:52 Labs: Laboratory Results - last 24 hr 03/17/25 04:52 WBC 8.4 RBC 3.82 L Hgb 11.4 L Hct 34.4 L MCV 90 MCH 29.8 MCHC 33.1 RDW Std Deviation 45.4 Plt Count 168 Neut % (Auto) 70 Lymph % (Auto) 19 [place] % (Auto) 8 Eos % (Auto) 2 Baso % (Auto) 1 Neut # (Auto) 5.9 Lymph # (Auto) 1.6 [place] # (Auto) 0.7 Eos # (Auto) 0.2 Baso # (Auto) 0.0 Immature Gran # (Auto) 0.04 H Absolute Nucleated RBC 0.00 Immature Gran % 1 H Nucleated RBC % 0 Sodium 140 Potassium 3.9 Chloride 104 Carbon Dioxide 25.7 Anion Gap 10 BUN 18 Creatinine 1.2 Estim Creat Clear Calc 35.2 L eGFR 44 L BUN/Creatinine Ratio 15 Glucose 159 H Calculated Osmolality 284 Calcium 8.0 L Corrected Calcium 8.6 Phosphorus 2.3 L Magnesium 2.0 Total Bilirubin 1.8 H D AST 30 ALT 17 Alkaline Phosphatase 57 Total Protein 5.5 L Albumin 3.3 L Globulin 2.2 L Albumin/Globulin Ratio 1.5 Assessment & Plan Problem List (1) Generalized weakness: Status: Acute Assessment and plan: stable for dc to short term rehab. MRI Brain: chronic small ischemic changes EEG: normal study Advised no driving until fu with neuro in 2 weeks.
== END 2025-03-17 18:50 | disposition skilled nursing facility (03) | DRG 558 ==
LOC: SERX 21:29 → SERHOLD 22:31 → S3SX 23:15
PROVIDERS: Emergency Medicine; Admitting Provider Student in an Organized Health Care Education/Training Program; Emergency Provider Emergency Medicine; Visit Provider Student in an Organized Health Care Education/Training Program
DX: M62.82 Rhabdomyolysis (principal); E87.20 Acidosis, unspecified; M10.9 Gout, unspecified; Z85.3 Personal history of malignant neoplasm of breast; Y92.003 Bedroom of unspecified non-institutional (private) residence as the place of occurrence of the external cause; D72.829 Elevated white blood cell count, unspecified; E11.65 Type 2 diabetes mellitus with hyperglycemia; R74.01 Elevation of levels of liver transaminase levels; K80.20 Calculus of gallbladder without cholecystitis without obstruction; R55 Syncope and collapse; K21.9 Gastro-esophageal reflux disease without esophagitis; E83.42 Hypomagnesemia; E87.6 Hypokalemia; H70.93 Unspecified mastoiditis, bilateral; I35.0 Nonrheumatic aortic (valve) stenosis; R79.1 Abnormal coagulation profile; W06.XXXA Fall from bed, initial encounter; Z96.652 Presence of left artificial knee joint; Z79.4 Long term (current) use of insulin; Z79.82 Long term (current) use of aspirin; Z92.3 Personal history of irradiation; Z88.5 Allergy status to narcotic agent; Z88.8 Allergy status to other drugs, medicaments and biological substances
CPT/HCPCS: 36415; 70450; 70551; 71045; 72125; 73020; 73521; 73560; 76705; 78227; 80053; 81001; 82247; 82248; 82550; 83605; 83735; 83880; 84100; 84145; 84484; 85025; 85610; 87040; 93005; 93225; 93306; 94762; 95816; 96360; 96361; 97162; 99284; A9537; J1644; J1815; J2470; J2543; J3475; J3480; J7030; J7120; A9270